=== PATIENT | female | born 1985 | race Caucasian/White ===

== ENCOUNTER 2022-11-16 18:04 | Emergency (ER) | payer OTHER ==
--- OUTSIDE RECORDS SUMMARY | 2022-11-16 19:29 | XMS REPORT | Continuity of Care Document ---
:1985 Author Organization [facility] t Address [address] [facility] [facility] [place] [address] Care Team Providers Name Role Phone Pcp, Patient Does Not Have A Primary Care Physician [phone] OWEN GAN Attending Clinician Unavailable Micah HUGGINS- Owen KNOX Attending Clinician Doctor Unassigned, [place] Attending Clinician Unavailable Team, [facility] Attending Clinician UnavailJeimy Rosenberg Attending Clinician Unavailable ELDER GONZALEZ Attending Clinician Unavailable Elder Keane Attending Clinician [facility] Attending Clinician MARGARET CROOKS Attending Clinician Unavailable JEIMY KENNEY Attending Clinician Unavailable Pob, [facility] Attending Clinician Unavailable Carmen Franco DO Attending Clinician Chay Mejia MD Attending Clinician CHAY MEJIA Attending Clinician Unavailable Pcp-Lab Attending Clinician Unavailable [facility] Admitting Clinician Payers Payer Name Policy Type Policy Number Effective Date Expiration Date S ource Problems Condition Condition Condition Status Onset Resolution Last Treating Co mments Source Name Details Category Date Date Treatment Clinician Date Status Status Disease Active Overview: Univer s following following 02-20 Formattin i ty of gastric gastric 00:00: g of this [place] bypass for bypass for 00 note Me dical weight weight might be Branch loss loss different from the original. Done 08/2018 [id number], [id number], Diagnosis Active 2018-09-19 Me leda MORBID MORBID 2-20 22:18:00 l OBESITY OBESITY 00:00: Jar[place] Active 00 08/15/2018 [facility] MORBID MORBID Diagnosis Active 2018-08-16 M emoria OBESITY OBESITY 1-04 09:25:00 l Active 00:00: Jarrett 06/29/2018 00 [facility] [id number], [id number], Diagnosis Active 2017-062018-05-11 Me moria REFLUX REFLUX 0-04 13:55:00 l Active 00:00: Jarrett 03/29/2018 00 [facility] Insulin Insulin Disease Active Univers pump pump 3 ity of status status 00:00: [place] 00 Medical Branch Insulin Insulin Disease Active Univers pump pump 307 [place] Uncontroll Uncontroll Disease Active U caryers ed type 1 ed type 1 3-07 ity of diabetes diabetes 00:00: [place] mellitus mellitus 00 Medica l without without Branch complicati complicati on on No No Disease Active Univers diabetic diabetic 02-18 [place] of retinopath [place] OU y OU 00 Medical [place] Refractive Refractive Disease Active U nelson error error 8 ity of 00:00: [place] 00 Medical Branch Dry eye Dry eye Disease Active Univers syndrome syndrome 8 ity of 00:00: [place] 00 Medical Branch Duodenitis Problem 2018-10-31 M emoria without Duodenitis 11:53:10 l bleeding without [place] bleeding 10/31/2018 [facility] Unspecifie Unspecifi Problem 2018-10-31 Memoria d chronic ed chronic 11:53:10 l gastritis gastritis Herm essence without without bleeding bleeding 10/31/2018 [facility] Presence Presence Problem 2018-10-31 Memoria of of 11:53:10 l (intrauter (intrauter He rmann ine) ine) contracept contracept choco device choco device 9 [facility] Type 2 Type 2 Problem 2018-10-31 Benjamín darin diabetes diabetes 11:53:10 l mellitus mellitus Moses n without without complicati complicati ons ons 10/31/2018 [facility] 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9, adult adult 10/31/2018 [facility] Allergy Allergy Problem 2018-10-31 Me moria status to status to 11:53:10 l other other [place] antibiotic antibiotic agents agents status status 10/31/2018 [facility] Allergy Allergy Problem 2018-10-31 Me moria status to status to 11:53:10 l analgesic analgesic Herm essence agent agent status status 10/31/2018 [facility] Morbid Morbid Problem 2018-12-17 Benjamín darin (severe) (severe) 11:12:16 l obesity obesity [place] due to due to excess excess calories calories 12/17/2018 [facility] Diabetes Diabetes Problem Active 2021-05-27 Memoria mellitus mellitus 01:59:48 l (disorder) (disorder) He rmann Active Problem 05/27/2021 [facility] Gastroesop Gastroeso Problem Active 2021-05-27 Memoria hageal phageal 01:59:48 l reflux reflux [place] disease disease (disorder) (disorder) Active Problem 05/27/2021 [facility] Morbid Morbid Problem Active 2021-05-27 Benjamín darin obesity obesity 01:59:48 l (disorder) (disorder) He rmann Active Problem 05/27/2021 [facility] Type 1 Type 1 Problem Active 2018-11-26 Benjamín darin diabetes diabetes 02:47:04 l mellitus mellitus Moses n without without complicati complicati on on Active Problem 11/26/2018 [facility] Preoperati Preoperat Diagnosis Active 2018-11-26 Memoria ve choco 02:47:04 l clearance clearance Herm essence Active Diagnosis 11/26/2018 [facility] MORBID MORBID Diagnosis Active 2018-09-19 Me moria (SEVERE) (SEVERE) 22:18:00 l OBESITY OBESITY [place] DUE TO DUE TO EXCESS CA EXCESS CA Active [facility] History of Past Illness Condition Condition Condition Status Onset Resolution Last Treating Co mments Source Name Details Category Date Date Treatment Clinician Date Gastro-eso Problem 2017-062018-10-31 2018-10-31 Memoria phageal Gastro-eso 0-25 11:53:10 11:53:10 l reflux phageal 04:30: Jar[place] disease reflux 18 without disease esophagiti without s esophagiti s 04/19/2018 10/31/2018 [facility] Allergies, Adverse Reactions, Alerts Allergy Allergy Status Severity Reaction(s) Onset Inactive Treating Comm ents Source Name Type Date Date Clinician Ibuprofe Propensi Active Hives Univer s n ty to 8-26 ity of adverse 00:00: [place] reaction 00 Medical s to Branch drug IBUPROFE DRUG Active Hives Univers N INGREDI 8-26 ity of 00:00: [place] 00 Medical Branch SULFAMET DRUG Active Hives Univers HOXAZOLE 4-30 ity of -TRIMETH 00:00: [place] OPRIM 00 Medical Branch Sulfamet Propensi Active Swelling Univ ers hoxazole ty to 4-30 ity of -Trimeth adverse 00:00: [place] oprim reaction 00 Medical s Branch Bactrim Bactrim Active Carl Farias Advil Advil Active Carl Farias Social History Social Habit Start Date Stop Date Quantity Comments Source Exposure to 2022-10-03 2022-10-13 Not sure University of SARS-CoV-2 00:00:00 11:47:00 [facility] [place] [facility] (event) Branch Alcohol intake 2022-10-13 2022-10-13 Current drinker Unive rsity of 00:00:00 00:00:00 of alcohol [facility] [place] [facility] (finding) Branch Tobacco use and 2021-04-29 2021-04-29 Smokeless tobacco Un iversity of exposure 00:00:00 00:00:00 non-user [facility] Social History 2018-09-07 2018-09-07 [facility] Ileana wong 15:21:50 15:21:50 Sex [birth year] Universit y of 00:00:00 00:00:00 [facility] Smoking Status Start Date Stop Date Source Never smoked tobacco [facility] Medications Ordered Filled Start Stop Current Ordering Indication Dosage Frequency Signature Comments Components Source Medication Medication Date Date Medication? Clinician (SIG) Name Name SEMGLEE PEN Yes inject 22 U nivers U-100 4-26 Units ity of INSULIN 100 00:00: [place] unit/mL (3 00 skin at Medica l mL) bedtime. Branch injection SEMGLEE PEN Yes inject 22 U nivers U-100 4-26 Units ity of INSULIN 100 00:00: [place] unit/mL (3 00 skin at Medica l mL) bedtime. Branch injection SEMGLEE PEN Yes inject 22 U nivers U-100 4-26 Units ity of INSULIN 100 00:00: [place] unit/mL (3 00 skin at Medica l mL) bedtime. Branch injection SEMGLEE PEN Yes inject 22 U nivers U-100 4-26 Units ity of INSULIN 100 00:00: [place] unit/mL (3 00 skin at Medica l mL) bedtime. Branch injection SEMGLEE PEN Yes inject 22 U nivers U-100 4-26 Units ity of INSULIN 100 00:00: [place] unit/mL (3 00 skin at Medica l mL) bedtime. Branch injection ergocalcife Yes Take by Uni vers rol, 4-20 mouth. ity of vitamin D2, 11:50: [place] (VITAMIN D 33 Medical ORAL) Branch multivit-ir Yes 1{tbl} Take 1 Un kwadwo on-FA-calci 4-20 tablet by ity of um-mins 9 11:50: [place] mg iron-400 33 the Medical mcg tablet morning. [facility] Bariatric Advantage calcium 2023-0 Yes Take by Univers carbonate 4-20 mouth. ity of (CALCIUM 11:50: [place] 500 ORAL) 33 Medical Branch ergocalcife 0 Yes Take by Uni vers rol, 4-20 mouth. ity of vitamin D2, 11:50: [place] (VITAMIN D 33 Medical ORAL) Branch multivit-ir Yes 1{tbl} Take 1 Un kwadwo on-FA-calci 4-20 tablet by ity of um-mins 9 11:50: [place] mg iron-400 33 the Medical mcg tablet morning. [facility] Bariatric Advantage calcium 0 Yes Take by Univers carbonate 4-20 mouth. ity of (CALCIUM 11:50: [place] 500 ORAL) 33 Medical Branch ergocalcife 0 Yes Take by Uni vers rol, 4-20 mouth. ity of vitamin D2, 11:50: [place] (VITAMIN D 33 Medical ORAL) Branch multivit-ir Yes 1{tbl} Take 1 Un kwadwo on-FA-calci 4-20 tablet by ity of um-mins 9 11:50: [place] mg iron-400 33 the Medical mcg tablet morning. [facility] Bariatric Advantage calcium Yes Take by Univers carbonate 4-20 mouth. ity of (CALCIUM 11:50: [place] 500 ORAL) 33 Medical Branch ergocalcife 0 Yes Take by Uni vers rol, 4-20 mouth. ity of vitamin D2, 11:50: [place] (VITAMIN D 33 Medical ORAL) Branch multivit-ir Yes 1{tbl} Take 1 Un kwadwo on-FA-calci 4-20 tablet by ity of um-mins 9 11:50: [place] mg iron-400 33 the Medical mcg tablet morning. [facility] Bariatric Advantage calcium 0 Yes Take by Univers carbonate 4-20 mouth. ity of (CALCIUM 11:50: [place] 500 ORAL) 33 Medical Branch ergocalcife 0 Yes Take by Uni vers rol, 4-20 mouth. ity of vitamin D2, 11:50: [place] (VITAMIN D 33 Medical ORAL) Branch multivit-ir 0 Yes 1{tbl} Take 1 Un kwadwo on-FA-calci 4-20 tablet by ity of um-mins 9 11:50: [place] mg iron-400 33 the Medical mcg tablet morning. [facility] Bariatric Advantage calcium 0 Yes Take by Univers carbonate 4-20 mouth. ity of (CALCIUM 11:50: [place] 500 ORAL) 33 Medical Branch ergocalcife 0 Yes Take by Uni vers rol, 4-20 mouth. ity of vitamin D2, 11:50: [place] (VITAMIN D 33 Medical ORAL) Branch multivit-ir Yes 1{tbl} Take 1 Un kwadwo on-FA-calci 4-20 tablet by ity of um-mins 9 11:50: [place] mg iron-400 33 the Medical mcg tablet morning. [facility] Bariatric Advantage calcium 0 Yes Take by Univers carbonate 4-20 mouth. ity of (CALCIUM 11:50: [place] 500 ORAL) 33 Medical Branch ergocalcife 0 Yes Take by Uni vers rol, 4-20 mouth. ity of vitamin D2, 11:50: [place] (VITAMIN D 33 Medical ORAL) Branch multivit-ir 0 Yes 1{tbl} Take 1 Un kwadwo on-FA-calci 4-20 tablet by ity of um-mins 9 11:50: [place] mg iron-400 33 the Medical mcg tablet morning. [facility] Bariatric Advantage calcium Yes Take by Univers carbonate 4-20 mouth. ity of (CALCIUM 11:50: [place] 500 ORAL) 33 Medical Branch ergocalcife 0 Yes Take by Uni vers rol, 4-20 mouth. ity of vitamin D2, 11:50: [place] (VITAMIN D 33 Medical ORAL) Branch multivit-ir 0 Yes 1{tbl} Take 1 Un kwadwo on-FA-calci 4-20 tablet by ity of um-mins 9 11:50: [place] mg iron-400 33 the Medical mcg tablet morning. [facility] Bariatric Advantage calcium 0 Yes Take by Univers carbonate 4-20 mouth. ity of (CALCIUM 11:50: [place] 500 ORAL) 33 Medical Branch ergocalcife 0 Yes Take by Uni vers rol, 4-20 mouth. ity of vitamin D2, 11:50: [place] (VITAMIN D 33 Medical ORAL) Branch multivit-ir 2023-0 Yes 1{tbl} Take 1 Un kwadwo on-FA-calci 4-20 tablet by ity of um-mins 9 11:50: [place] mg iron-400 33 the Medical mcg tablet morning. [facility] Bariatric Advantage calcium Yes Take by Univers carbonate 4-20 mouth. ity of (CALCIUM 11:50: [place] 500 ORAL) 33 Medical Branch ergocalcife Yes Take by Uni vers rol, 4-20 mouth. ity of vitamin D2, 11:50: [place] (VITAMIN D 33 Medical ORAL) Branch multivit-ir Yes 1{tbl} Take 1 Un kwadwo on-FA-calci 4-20 tablet by ity of um-mins 9 11:50: [place] mg iron-400 33 the Medical mcg tablet morning. [facility] Bariatric Advantage calcium Yes Take by Univers carbonate 4-20 mouth. ity of (CALCIUM 11:50: [place] 500 ORAL) 33 Medical Branch ergocalcife Yes Take by Uni vers rol, 4-20 mouth. ity of vitamin D2, 11:50: [place] (VITAMIN D 33 Medical ORAL) Branch multivit-ir Yes 1{tbl} Take 1 Un kwadwo on-FA-calci 4-20 tablet by ity of um-mins 9 11:50: [place] mg iron-400 33 the Medical mcg tablet morning. [facility] Bariatric Advantage calcium Yes Take by Univers carbonate 4-20 mouth. ity of (CALCIUM 11:50: [place] 500 ORAL) 33 Medical Branch ergocalcife Yes Take by Uni vers rol, 4-20 mouth. ity of vitamin D2, 11:50: [place] (VITAMIN D 33 Medical ORAL) Branch multivit-ir Yes 1{tbl} Take 1 Un kwadwo on-FA-calci 4-20 tablet by ity of um-mins 9 11:50: [place] mg iron-400 33 the Medical mcg tablet morning. [facility] Bariatric Advantage calcium Yes Take by Univers carbonate 4-20 mouth. ity of (CALCIUM 11:50: [place] 500 ORAL) 33 Medical Branch insulin 0 Yes [id number] 1{each} inject 1 Univers pump 4-20 Each under ity of cart,automa 00:00: [place] eunice,BT 00 every 72 Medical (OMNIPOD 5 (seventy-t Bra formerly [facility] G6 PODS, wo) hours. GEN 5,) E10.9 Crtg insulin 2022-0 Yes [id number] 30U inject 0.3 Univers glargine-yf 4-20 mL under ity of gn 00:00: the skin [place] (SEMGLEE,IN 00 at [facility] SULIN bedtime. Branch GLARG-YFGN, Inject 20 PEN) 100 units unit/mL (3 under the mL) InPn skin daily if not using insulin pump. insulin 2022- Yes [id number] 15U inject 15 Univers lispro 4-20 Units ity of (HUMALOG 00:00: [place] KWIKPEN 00 skin in Medical INSULIN) the Branch 100 unit/mL morning pen and 15 injector Units at noon and 15 Units in the evening. inject before meals. Blood-Gluco 2022-0 Yes [id number] 1{each} inject 1 Univers se Sensor 4-20 Each under ity of (DEXCOM G6 00:00: the skin Germán as SENSOR) 00 every 10 Medical Veda (ten) Branch days. E10.9 , insulin 4times daily Blood-Gluco 2022-0 Yes [id number] E10.9 , Univers se 4-20 insulin ity of Transmitter 00:00: 4times [place] (DEXCOM G6 00 daily Medical TRANSMITTER Branch ) Veda Insulin 2022-0 Yes [id number] E10.9 , Un kwadwo [place], 4-20 insulin ity of Disposable, 00:00: 4times [place] (BD INSULIN 00 daily Medical PEN NEEDLE Branch UF) 31 gauge x 5/16" Ndle insulin 2022-0 Yes [id number] 1{each} inject 1 Univers pump 4-20 Each under ity of cart,auto,B 00:00: the skin [place] T-[facility]tr 00 CONTINUOUS Medical (OMNIPOD 5 . E10.9 Branch G6 INTRO KIT, GEN 5,) Crtg insulin 2022-0 Yes [id number] 1{each} inject 1 Univers pump 4-20 Each under ity of cart,automa 00:00: the skin [place] eunice,BT 00 every 72 Medical (OMNIPOD 5 (seventy-t Bra formerly [facility] G6 PODS, wo) hours. GEN 5,) E10.9 Crtg insulin 2022-0 Yes [id number] 30U inject 0.3 Univers glargine-yf 4-20 mL under ity of gn 00:00: the skin [place] (SEMGLEE,IN 00 at Medical SULIN bedtime. Branch GLARG-YFGN, Inject 20 PEN) 100 units unit/mL (3 under the mL) InPn skin daily if not using insulin pump. insulin 0 Yes [id number] 15U inject 15 Univers lispro 4-20 Units ity of (HUMALOG 00:00: [place] KWIKPEN 00 skin in Medical INSULIN) the Branch 100 unit/mL morning pen and 15 injector Units at noon and 15 Units in the evening. inject before meals. Blood-Gluco 0 Yes [id number] 1{each} inject 1 Univers se Sensor 4-20 Each under ity of (DEXCOM G6 00:00: the skin [place]án as SENSOR) 00 every 10 Medical Veda (ten) Branch days. E10.9 , insulin 4times daily Blood-Gluco 2022-0 Yes [id number] E10.9 , Univers se 4-20 insulin ity of Transmitter 00:00: 4times [place] (DEXCOM G6 00 daily Medical TRANSMITTER Branch ) Veda Insulin 2022-0 Yes [id number] E10.9 , Un kwadwo [place], 4-20 insulin ity of Disposable, 00:00: 4times [place] (BD INSULIN 00 daily Medical PEN NEEDLE Branch UF) 31 gauge x 5/16" Ndle insulin 2022-0 Yes [id number] 1{each} inject 1 Univers pump 4-20 Each under ity of cart,auto,B 00:00: the skin [place] T-cntr 00 CONTINUOUS Medical (OMNIPOD 5 . E10.9 Branch G6 INTRO KIT, GEN 5,) Crtg insulin 2022-0 Yes [id number] 1{each} inject 1 Univers pump 4-20 Each under ity of cart,automa 00:00: the skin [place] eunice,BT 00 every 72 Medical (OMNIPOD 5 (seventy-t Bra formerly [facility] G6 PODS, wo) hours. GEN 5,) E10.9 Crtg insulin 2022-0 Yes [id number] 30U inject 0.3 Univers glargine-yf 4-20 mL under ity of gn 00:00: the skin [place] (SEMGLEE,IN 00 at Medical SULIN bedtime. Branch GLARG-YFGN, Inject 20 PEN) 100 units unit/mL (3 under the mL) InPn skin daily if not using insulin pump. insulin 2022-0 Yes [id number] 15U inject 15 Univers lispro 4-20 Units ity of (HUMALOG 00:00: [place] KWIKPEN 00 skin in Medical INSULIN) the Branch 100 unit/mL morning pen and 15 injector Units at noon and 15 Units in the evening. inject before meals. Blood-Gluco 2022-0 Yes [id number] 1{each} inject 1 Univers se Sensor 4-20 Each under ity of (DEXCOM G6 00:00: the skin [place] as SENSOR) 00 every 10 Medical [place] (ten) Branch days. E10.9 , insulin 4times daily Blood-Gluco 2022-0 Yes [id number] E10.9 , Univers se 4-20 insulin ity of Transmitter 00:00: 4times [place] (DEXCOM G6 00 daily Medical TRANSMITTER Branch ) Veda Insulin 2022-0 Yes [id number] E10.9 , Un kwadwo [place], 4-20 insulin ity of Disposable, 00:00: 4times [place] (BD INSULIN 00 daily Medical PEN NEEDLE Branch UF) 31 gauge x 5/16" Ndle insulin 2022-0 Yes [id number] 1{each} inject 1 Univers pump 4-20 Each under ity of cart,auto,B 00:00: the skin [place] [facility] 00 CONTINUOUS Medical (OMNIPOD 5 . E10.9 Branch G6 INTRO KIT, GEN 5,) Crtg insulin 2022-0 Yes [id number] 1{each} inject 1 Univers pump 4-20 Each under ity of cart,automa 00:00: the skin [place] eunice,BT 00 every 72 Medical (OMNIPOD 5 (seventy-t Bra formerly [facility] G6 PODS, wo) hours. GEN 5,) E10.9 Crtg insulin 2022-0 Yes [id number] 30U inject 0.3 Univers glargine-yf 4-20 mL under ity of gn 00:00: the skin [place] [facility] GLARG-[facility]FGN, Inject 20 PEN) 100 units unit/mL (3 under the mL) InPn skin daily if not using insulin pump. insulin Yes [id number] 15U inject 15 Univers lispro 4-20 Units ity of (HUMALOG 00:00: [place] KWIKPEN 00 skin in Medical INSULIN) the Branch 100 unit/mL morning pen and 15 injector Units at noon and 15 Units in the evening. inject before meals. Blood-Gluco Yes [id number] 1{each} inject 1 Univers se Sensor 4-20 Each under ity of (DEXCOM G6 00:00: the skin [place] as SENSOR) 00 every 10 Medical Veda (ten) Branch days. E10.9 , insulin 4times daily Blood-Gluco Yes [id number] E10.9 , Univers se 4-20 insulin ity of Transmitter 00:00: 4times [place] (DEXCOM G6 00 daily Medical TRANSMITTER Branch ) Veda Insulin Yes [id number] E10.9 , Un kwadwo [place], 4-20 insulin ity of Disposable, 00:00: 4times [place] (BD INSULIN 00 daily Medical PEN NEEDLE Branch UF) 31 gauge x 5/16" Ndle insulin 2022- Yes [id number] 1{each} inject 1 Univers pump 4-20 Each under ity of cart,auto,B 00:00: the skin [place] [facility] 00 CONTINUOUS Medical (OMNIPOD 5 . E10.9 Branch G6 INTRO KIT, GEN 5,) Crtg insulin Yes [id number] 1{each} inject 1 Univers pump 4-20 Each under ity of cart,automa 00:00: the skin [place] eunice,BT 00 every 72 Medical (OMNIPOD 5 (seventy-t Bra formerly [facility] G6 PODS, wo) hours. GEN 5,) E10.9 Crtg insulin 2022- Yes [id number] 15U inject 15 Univers lispro 4-20 Units ity of (HUMALOG 00:00: [place] KWIKPEN 00 skin in Medical INSULIN) the Branch 100 unit/mL morning pen and 15 injector Units at noon and 15 Units in the evening. inject before meals. Blood-Gluco 2023-0 Yes [id number] 1{each} inject 1 Univers se Sensor 4-20 Each under ity of (DEXCOM G6 00:00: the skin [place] as SENSOR) 00 every 10 Medical Veda (ten) Branch days. E10.9 , insulin 4times daily Blood-Gluco 0 Yes [id number] E10.9 , Univers se 4-20 insulin ity of Transmitter 00:00: 4times [place] (DEXCOM G6 00 daily Medical TRANSMITTER Branch ) Veda Insulin 2022-0 Yes [id number] E10.9 , Un kwadwo [place], 4-20 insulin ity of Disposable, 00:00: 4times [place] (BD INSULIN 00 daily Medical PEN NEEDLE Branch UF) 31 gauge x 5/16" Ndle insulin Yes [id number] 1{each} inject 1 Univers pump 4-20 Each under ity of cart,auto,B 00:00: the skin [place] [facility] 00 CONTINUOUS Medical (OMNIPOD 5 . E10.9 Branch G6 INTRO KIT, GEN 5,) Crtg Insulin Yes [id number] 22U inject 22 Univers Glargine 4-20 Units ity of (BASAGLAR 00:00: under the [place] as KWIKPEN 00 skin at Medical U-100 bedtime. Branch INSULIN) 100 unit/mL (3 mL) injection insulin 2022- Yes [id number] 1{each} inject 1 Univers pump 4-20 Each under ity of cart,automa 00:00: the skin [place] eunice,BT 00 every 72 Medical (OMNIPOD 5 (seventy-t Bra formerly [facility] G6 PODS, wo) hours. GEN 5,) E10.9 Crtg insulin Yes [id number] 15U inject 15 Univers lispro 4-20 Units ity of (HUMALOG 00:00: [place] KW[place]EN 00 skin in Medical INSULIN) the Branch 100 unit/mL morning pen and 15 injector Units at noon and 15 Units in the evening. inject before meals. Blood-Gluco 0 Yes [id number] 1{each} inject 1 Univers se Sensor 4-20 Each under ity of (DEXCOM G6 00:00: the skin [place] as SENSOR) 00 every 10 Medical Veda (ten) Branch days. E10.9 , insulin 4times daily Blood-Gluco 202-0 Yes [id number] E10.9 , Univers se 4-20 insulin ity of Transmitter 00:00: 4times [place] (DEXCOM G6 00 daily Medical TRANSMITTER Branch ) Veda Insulin 2022-0 Yes [id number] E10.9 , Un kwadwo [place], 4-20 insulin ity of Disposable, 00:00: 4times [place] (BD INSULIN 00 daily Medical PEN NEEDLE Branch UF) 31 gauge x 5/16" Ndle insulin 2022-0 Yes [id number] 1{each} inject 1 Univers pump 4-20 Each under ity of cart,auto,B 00:00: the skin [place] [facility] 00 CONTINUOUS Medical (OMNIPOD 5 . E10.9 Branch G6 INTRO KIT, GEN 5,) Crtg Insulin 2022-0 Yes [id number] 22U inject 22 Univers Glargine 4-20 Units ity of (BASAGLAR 00:00: under the [place] as KWIKPEN 00 skin at Medical U-100 bedtime. Branch INSULIN) 100 unit/mL (3 mL) injection insulin 2022-0 Yes [id number] 1{each} inject 1 Univers pump 4-20 Each under ity of cart,automa 00:00: the [place] eunice,BT 00 every 72 Medical (OMNIPOD 5 (seventy-t Bra formerly [facility] G6 PODS, wo) hours. GEN 5,) E10.9 Crtg insulin 2022-0 Yes [id number] 15U inject 15 Univers lispro 4-20 Units ity of (HUMALOG 00:00: [place] KWIKPEN 00 skin in Medical INSULIN) the Branch 100 unit/mL morning pen and 15 injector Units at noon and 15 Units in the evening. inject before meals. Blood-Gluco 2022-0 Yes [id number] 1{each} inject 1 Univers se Sensor 4-20 Each under ity of (DEXCOM G6 00:00: the skin [place] as SENSOR) 00 every 10 Medical Veda (ten) Branch days. E10.9 , insulin 4times daily Blood-Gluco 202-0 Yes [id number] E10.9 , Univers se 4-20 insulin ity of Transmitter 00:00: 4times [place] (DEXCOM G6 00 daily Medical TRANSMITTER Branch ) [facility]eda Insulin 2023-0 Yes [id number] E10.9 , Un [place], 4-20 insulin ity of Disposable, [place] INS[place]IN 00 daily Medical PEN NEEDLE Branch UF) 31 gauge x 5/16" Ndle insulin 2022- Yes [id number] 1{each} inject 1 [facility] pump 4-20 Each under ity of cart,auto,B 00:00: the skin [place] [facility] 00 CONTINUOUS Medical (OMNIPOD 5 . E10.9 Branch G6 INTRO KIT, GEN 5,) Crtg Insulin Yes [id number] 22U inject 22 [facility] Glargine 4-20 Units ity of (BASAGLAR 00:00: under the [place] KWIKPEN 00 skin at Medical U-100 bedtime. Branch INSULIN) 100 unit/mL (3 mL) injection insulin Yes [id number] 1{each} inject 1 [facility] pump 4-20 Each under ity of cart,automa 00:00: [place] skin [place] e[place],BT 00 every 72 Medical (OMNIPOD 5 (seventy-t Bra formerly [facility] G6 PODS, wo) hours. GEN 5,) E10.9 Crtg insulin Yes [id number] 15U inject 15 [facility] lispro 4-20 Units ity of (HUMALOG 00:00: [place] skin in Medical INSULIN) the Branch 100 unit/mL morning pen and 15 injector Units at noon and 15 Units in the evening. inject before meals. Blood-Gluco Yes [id number] 1{each} inject 1 [facility] se Sensor 4-20 Each under ity of (DEXCOM G6 00:00: the skin [place] SENSOR) 00 every 10 Medical [facility]eda (ten) Branch days. E10.9 , insulin 4times daily Blood-Gluco 2022-0 Yes [id number] E10.9 , Univers se 4-20 insulin [place]y of Transmitter 00:00: [place] (DEXCOM G6 00 daily Medical TRANSMITTER Branch ) [facility]eda Insulin 2022-0 Yes [id number] E10.9 , [place], 4-20 insulin ity of Disposable, 00:00: [place] ([place] INSULIN 00 daily Medical PEN NEEDLE Branch UF) 31 gauge x 5/16" Ndle insulin 2022-0 Yes [id number] 1{each} inject 1 [facility] pump 4-20 Each under ity of cart,auto,B 00:00: [place] [facility] 00 CONTINUOUS Medical (OMNIPOD 5 . E10.9 Branch G6 INTRO KIT, GEN 5,) Crtg insulin 2022-0 Yes [id number] 1{each} inject 1 [facility] pump 4-20 Each under ity of cart,automa 00:00: [place] skin [place],BT 00 every 72 Medical (OMNIPOD 5 (seventy-t Bra formerly [facility] G6 PODS, wo) hours. GEN 5,) E10.9 Crtg insulin 2022-0 Yes [id number] 15U inject 15 [facility] lispro 4-20 Units ity of (HUMALOG 00:00: [place] skin in Medical INSULIN) the Branch 100 unit/mL morning pen and 15 injector Units at noon and 15 Units in the evening. inject before meals. Blood-Gluco 2022-0 Yes [id number] 1{each} inject 1 [facility] se Sensor 4-20 Each under ity of (DEXCOM G6 00:00: the skin [place] SENSOR) 00 every 10 Medical Veda (ten) Branch days. E10.9 , insulin 4times daily Blood-Gluco 2022-0 Yes [id number] E10.9 , Univers se 4-20 insulin ity of Transmitter 00:00: [place] (DEXCOM G6 00 daily Medical TRANSMITTER Branch ) [facility]eda Insulin 2022-0 Yes [id number] E10.9 , [place], 4-20 insulin ity of Disposable, 00:00: [place] ([place] INSULIN 00 daily Medical PEN NEEDLE Branch UF) 31 gauge x 5/16" Ndle insulin 2022-0 Yes [id number] 1{each} inject 1 [facility] pump 4-20 Each under ity of cart,auto,B 00:00: the skin [place] [facility] 00 CONTINUOUS Medical (OMNIPOD 5 . E10.9 Branch G6 INTRO KIT, GEN 5,) Crtg insulin 2022-0 Yes [id number] 1{each} inject 1 [facility] pump 4-20 Each under ity of cart,automa 00:00: [place] skin [place],BT 00 every 72 Medical (OMNIPOD 5 (seventy-t Bra formerly [facility] G6 PODS, wo) hours. GEN 5,) E10.9 Crtg insulin 2022-0 Yes [id number] 15U inject 15 [facility] lispro 4-20 Units ity of (HUMALOG 00:00: [place] skin in Medical INSULIN) the Branch 100 unit/mL morning pen and 15 injector Units at noon and 15 Units in the evening. inject before meals. Blood-Gluco 2022-0 Yes [id number] 1{each} inject 1 [facility] se Sensor 4-20 Each under ity of (DEXCOM G6 00:00: the skin [place] SENSOR) 00 every 10 Medical [facility]eda (ten) Branch days. E10.9 , insulin 4times daily Blood-Gluco 2022-0 Yes [id number] E10.9 , Univers se 4-20 insulin ity of Transmitter 00:00: [place] (DEXCOM G6 00 daily Medical TRANSMITTER Branch ) [facility]eda Insulin 2022-0 Yes [id number] E10.9 , [place], 4-20 insulin ity of Disposable, 00:00: [place] (BD INSULIN 00 daily Medical PEN NEEDLE Branch UF) 31 gauge x 5/16" Ndle insulin 2022- Yes [id number] 1{each} inject 1 [facility] pump 4-20 Each under ity of cart,auto,B 00:00: the skin [place] [facility] 00 CONTINUOUS Medical (OMNIPOD 5 . E10.9 Branch G6 INTRO KIT, GEN 5,) Crtg insulin 2022-0 Yes [id number] 1{each} inject 1 [facility] pump 4-20 Each under ity of cart,automa 00:00: the skin [place],BT 00 every 72 Medical (OMNIPOD 5 (seventy-t Bra formerly [facility] G6 PODS, wo) hours. GEN 5,) E10.9 Crtg insulin 2022-0 Yes [id number] 15U inject 15 [facility] lispro 4-20 Units ity of (HUMALOG 00:00: [place] skin in Medical INSULIN) the Branch 100 unit/mL morning pen and 15 injector Units at noon and 15 Units in the evening. inject before meals. Blood-Gluco 2022-0 Yes [id number] 1{each} inject 1 [facility] se Sensor 4-20 Each under ity of (DEXCOM G6 00:00: the skin [place] SENSOR) 00 every 10 Medical [facility] (ten) Branch days. E10.9 , insulin 4times daily Blood-Gluco 2022-0 Yes [id number] E10.9 , Univers se 4-20 insulin ity of Transmitter 00:00: [place] (DEXCOM G6 00 daily Medical TRANSMITTER Branch ) [facility] Insulin 2022-0 Yes [id number] E10.9 , [place], 4-20 insulin ity of Disposable, 00:00: [place] (BD INSULIN 00 daily Medical PEN NEEDLE Branch UF) 31 gauge x 5/16" Ndle insulin 2022-0 Yes [id number] 1{each} inject 1 [facility] pump 4-20 Each under ity of cart,auto,B 00:00: the skin [place] [facility] 00 CONTINUOUS Medical (OMNIPOD 5 . E10.9 Branch G6 INTRO KIT, GEN 5,) Crtg insulin 2022-0 Yes [id number] 1{each} inject 1 [facility] pump 4-20 Each under ity of cart,automa 00:00: the skin [place],BT 00 every 72 Medical (OMNIPOD 5 (seventy-t Bra formerly [facility] G6 PODS, wo) hours. GEN 5,) E10.9 Crtg insulin 2022-0 Yes [id number] 15U inject 15 [facility] lispro 4-20 Units ity of (HUMALOG 00:00: [place] skin in Medical INSULIN) the Branch 100 unit/mL morning pen and 15 injector Units at noon and 15 Units in the evening. inject before meals. Blood-Gluco 2022-0 Yes [id number] 1{each} inject 1 [facility] se Sensor 4-20 Each under ity of (DEXCOM G6 00:00: the skin [place] SENSOR) 00 every 10 Medical [facility] (ten) Branch days. E10.9 , insulin 4times daily Blood-Gluco 2022-0 Yes [id number] E10.9 , Univers se 4-20 insulin ity of Transmitter 00:00: [place] (DEXCOM G6 00 daily Medical TRANSMITTER Branch ) [facility]eda Insulin 2022-0 Yes [id number] E10.9 , [place], 4-20 insulin ity of Disposable, 00:00: [place] (BD INSULIN 00 daily Medical PEN NEEDLE Branch UF) 31 gauge x 5/16" Ndle insulin Yes [id number] 1{each} inject 1 [facility] pump 4-20 Each under ity of cart,auto,B 00:00: the skin [place] [facility] 00 CONTINUOUS Medical (OMNIPOD 5 . E10.9 Branch G6 INTRO KIT, GEN 5,) Crtg Insulin 2022- No [id number] 22U inject 22 [facility] Glargine 4-20 04-26 Units ity of (BASAGLAR 00:00: [place] 00 :00 skin at [facility] U-100 bedtime. Branch INSULIN) 100 unit/mL (3 mL) injection insulin 2022- No [id number] 30U inject 0.3 Univers glargine-yf 4-20 04-20 mL under ity of gn 00:00: 00:00 the skin [place] (SEMGLEE,IN 00 :00 at [facility] SULIN bedtime. Branch GLARG-YFGN, Inject 20 PEN) 100 units unit/mL (3 under the mL) InPn skin daily if not using insulin pump. insulin Yes [id number] Inject 20 [facility] glargine-yf 6-03 units ity of gn 00:00: under the [place] (SEMGLEE,IN 00 skin daily Me dical SULIN if not Branch GLARG-YFGN, using PEN) 100 insulin unit/mL (3 pump. mL) InPn insulin Yes [id number] 1{each} 1 Each by [facility] pump 6-03 NOT ity of cart,cont 00:00: APPLICABLE [place] inf,RF 00 route Medical (OMNIPOD every 72 Branch CLASSIC (seventy-t POD, GEN wo) hours. 3,) Crtg CHANGE POD EVERY 3 DAYS insulin Yes [id number] Inject 20 [facility] glargine-yf 6-03 units ity of gn 00:00: under the [place] (SEMGLEE,IN 00 skin daily Me dical SULIN if not Branch GLARG-YFGN, using PEN) 100 insulin unit/mL (3 pump. mL) InPn insulin Yes [id number] 1{each} 1 Each by [facility] pump 6-03 NOT ity of cart,cont 00:00: APPLICABLE [place] inf,RF 00 route Medical (OMNIPOD every 72 Branch CLASSIC (seventy-t POD, GEN wo) hours. 3,) Crtg CHANGE POD EVERY 3 DAYS insulin 0 Yes [id number] Inject 20 [facility] glargine-yf 6-03 units ity of gn 00:00: under the [place] (SEMGLEE,IN 00 skin daily Me dical SULIN if not Branch GLARG-YFGN, using PEN) 100 insulin unit/mL (3 pump. mL) InPn insulin 0 Yes [id number] 1{each} 1 Each by [facility] pump 6-03 NOT ity of cart,cont 00:00: APPLICABLE [place] inf,RF 00 route Medical (OMNIPOD every 72 Branch CLASSIC (seventy-t POD, GEN wo) hours. 3,) Crtg CHANGE POD EVERY 3 DAYS insulin 0 Yes [id number] 1{each} 1 Each by [facility] pump 6-03 NOT ity of cart,cont 00:00: APPLICABLE [place] inf,RF 00 route Medical (OMNIPOD every 72 Branch CLASSIC (seventy-t POD, GEN wo) hours. 3,) Crtg CHANGE POD EVERY 3 DAYS insulin 0 Yes [id number] 1{each} 1 Each by [facility] pump 6-03 NOT ity of cart,cont 00:00: APPLICABLE [place] inf,RF 00 route Medical (OMNIPOD every 72 Branch CLASSIC (seventy-t POD, GEN wo) hours. 3,) Crtg CHANGE POD EVERY 3 DAYS insulin 0 Yes [id number] 1{each} 1 Each by [facility] pump 6-03 NOT ity of cart,cont 00:00: APPLICABLE [place] inf,RF 00 route Medical (OMNIPOD every 72 Branch CLASSIC (seventy-t POD, GEN wo) hours. 3,) Crtg CHANGE POD EVERY 3 DAYS insulin 2021-0 Yes [id number] 1{each} 1 Each by [facility] pump 6-03 NOT ity of cart,cont 00:00: APPLICABLE [place] inf,RF 00 route Medical (OMNIPOD every 72 Branch CLASSIC (seventy-t POD, GEN wo) hours. 3,) Crtg CHANGE POD EVERY 3 DAYS insulin 0 Yes [id number] 1{each} 1 Each by [facility] pump 6-03 NOT ity of cart,cont 00:00: APPLICABLE [place] inf,RF 00 route Medical (OMNIPOD every 72 Branch CLASSIC (seventy-t POD, GEN wo) hours. 3,) Crtg CHANGE POD EVERY 3 DAYS insulin 2021-0 Yes [id number] 1{each} 1 Each by Univers pump 6-03 NOT ity of cart,cont 00:00: APPLICABLE [place] inf,RF 00 route Medical (OMNIPOD every 72 Branch CLASSIC (seventy-t POD, GEN wo) hours. 3,) Crtg CHANGE POD EVERY 3 DAYS insulin 2021-0 Yes [id number] 1{each} 1 Each by Univers pump 6-03 NOT ity of cart,cont 00:00: APPLICABLE [place] inf,RF 00 route Medical (OMNIPOD every 72 Branch CLASSIC (seventy-t POD, GEN wo) hours. 3,) Crtg CHANGE POD EVERY 3 DAYS insulin 0 Yes [id number] 1{each} 1 Each by Univers pump 6-03 NOT ity of cart,cont 00:00: APPLICABLE [place] inf,RF 00 route Medical (OMNIPOD every 72 Branch CLASSIC (seventy-t POD, GEN wo) hours. 3,) Crtg CHANGE POD EVERY 3 DAYS insulin 0 Yes [id number] 1{each} 1 Each by Univers pump 6-03 NOT ity of cart,cont 00:00: APPLICABLE [place] inf,RF 00 route Medical (OMNIPOD every 72 Branch CLASSIC (seventy-t POD, GEN wo) hours. 3,) Crtg CHANGE POD EVERY 3 DAYS insulin 2021-0 Yes [id number] 1{each} 1 Each by [facility] pump 6-03 NOT ity of cart,cont 00:00: APPLICABLE [place] inf,RF 00 route Medical (OMNIPOD every 72 Branch CLASSIC (seventy-t POD, GEN wo) hours. 3,) Crtg CHANGE POD EVERY 3 DAYS insulin 2021-0 Yes [id number] 1{each} 1 Each by Univers pump 6-03 NOT ity of cart,cont 00:00: APPLICABLE [place] inf,RF 00 route Medical (OMNIPOD every 72 Branch CLASSIC (seventy-t POD, GEN wo) hours. 3,) Crtg CHANGE POD EVERY 3 DAYS insulin 2021-0 Yes [id number] 1{each} 1 Each by Univers pump 6-03 NOT ity of cart,cont 00:00: APPLICABLE [place] inf,RF 00 route Medical (OMNIPOD every 72 Branch CLASSIC (seventy-t POD, GEN wo) hours. 3,) Crtg CHANGE POD EVERY 3 DAYS insulin 2022- No [id number] Inject 20 Univers glargine-yf 6-03 04-20 units ity of gn 00:00: 00:00 under the [place] (SEMGLEE,IN 00 :00 skin daily Me dical SULIN if not Branch GLARG-YFGN, using PEN) 100 insulin unit/mL (3 pump. mL) InPn insulin 2022- No [id number] Inject 20 Univers glargine-yf 6- 04-20 units ity of gn 00:00: 00:00 under the [place] (SEMGLEE,IN 00 :00 skin daily Me dical SULIN if not Branch GLARG-YFGN, using PEN) 100 insulin unit/mL (3 pump. mL) InPn insulin 2022- No [id number] Inject 20 Univers glargine-yf 6- 04-20 units ity of gn 00:00: 00:00 under the [place] (SEMGLEE,IN 00 :00 skin daily Me dical SULIN if not Branch GLARG-YFGN, using PEN) 100 insulin unit/mL (3 pump. mL) InPn insulin 2022- No [id number] Inject 20 Univers glargine-yf 6-03 04-20 units ity of gn 00:00: 00:00 under the [place] (SEMGLEE,IN 00 :00 skin daily Me dical SULIN if not Branch GLARG-YFGN, using PEN) 100 insulin unit/mL (3 pump. mL) InPn insulin 2021- No [id number] Inject 20 Univers glargine-yf 3-10 06-03 units ity of gn 00:00: 00:00 under the [place] (SEMGLEE,IN 00 :00 skin daily Me dical SULIN if not Branch GLARG-YFGN, using PEN) 100 insulin unit/mL (3 pump. mL) InPn Insulin 2021- No [id number] CHANGE POD Univers Pump 3-10 06-03 EVERY 3 ity of Cartridge 00:00: 00:00 DAYS [place] (OMNIPOD 00 :00 Medical INSULIN Branch REFILL) Crtg ergocalcife 2020-06 Yes Take by Uni vers rol, 1-04 mouth. ity of vitamin D2, 16:43: [place] (VITAMIN D 14 Medical ORAL) Branch ergocalcife 2020-06 Yes Take by Uni vers rol, 1-04 mouth. ity of vitamin D2, 16:43: [place] (VITAMIN D 14 Medical ORAL) Branch ergocalcife 2020-06 Yes Take by Uni vers rol, 1-04 mouth. ity of vitamin D2, 16:43: [place] (VITAMIN D 14 Medical ORAL) Branch insulin 2020-06 Yes [id number] 6U inject 6 U nivers lispro 1-04 Units ity of (HUMALOG 00:00: [place] 00 skin 3 Medical INSULIN) (three) Branch 100 unit/mL times pen daily injector before meals. insulin 2020-06 Yes [id number] 6U inject 6 U nivers lispro 1-04 Units ity of (HUMALOG 00:00: [place] 00 skin 3 Medical INSULIN) (three) Branch 100 unit/mL times pen daily injector before meals. insulin 2020-06 Yes [id number] 6U inject 6 U nivers lispro 1-04 Units ity of (HUMALOG 00:00: under [place] 00 skin 3 Medical INSULIN) (three) Branch 100 unit/mL times pen daily injector before meals. insulin 2020-06- No [id number] 6U inject 6 Univers lispro 1-04 04-20 Units ity of (HUMALOG 00:00: 00:00 under the [place]WIKPEN 00 :00 skin 3 Medical INSULIN) (three) Branch 100 unit/mL times pen daily injector before meals. insulin 2020-06- No [id number] 6U inject 6 Univers lispro 1-04 04-20 Units ity of (HUMALOG 00:00: 00:00 under the [place]WIKPEN 00 :00 skin 3 Medical INSULIN) (three) Branch 100 unit/mL times pen daily injector before meals. insulin 2020-06- No [id number] 6U inject 6 Univers lispro 1-04 04-20 Units ity of (HUMALOG 00:00: 00:00 under the [place]EN 00 :00 skin 3 Medical INSULIN) (three) Branch 100 unit/mL times pen daily injector before meals. insulin 2020-06- No [id number] 6U inject 6 Univers lispro 1-04 04-20 Units ity of (HUMALOG 00:00: 00:00 under the [place]WIK[place]EN 00 :00 skin 3 Medical INSULIN) (three) Branch 100 unit/mL times pen daily injector before meals. Blood-Gluco 2020-06 Yes [id number] Use as Univers se 0-21 directed ity of Meter,Suri 00:00: [place] nuous 00 Medical (DEXCOM G6 Branch JIG MAKER) Mis Blood-Gluco 2020-06 Yes [id number] 1{each} inject 1 Univers se Sensor 0-21 Each under ity of (DEXCOM G6 00:00: the skin [place] SENSOR) 00 every 10 Medical Veda (ten) Branch days. Use as directed Blood-Gluco 2020-06 Yes [id number] Use as Univers se 0-21 directed ity of Transmitter 00:00: [place] (DEXCOM G6 00 Medical TRANSMITTER Branch ) Veda insulin 2020-06 Yes [id number] USE Uni vers lispro, 0-21 INSTRUCTED ity of human, 00:00: WITH [place] (HUMALOG 00 INSULIN Medical U-100 PUMP UNTIL Branch INSULIN) A MAXIMUM 100 unit/mL OF 80 injection UNITS DAILY. blood sugar 2020-06 Yes [id number] Check Univers diagnostic 0-21 blood ity of (ONETOUCH 00:00: sugar 4 [place] ULTRA TEST) 00 times a Medic al strip day Branch Blood-Gluco 2020-06 Yes [id number] Use as Univers se 0-21 directed ity of Meter,Suri 00:00: [place] nuous 00 Medical (DEXCOM G6 Branch JIG MAKER) Misc Blood-Gluco 2020-06 Yes [id number] 1{each} inject 1 Univers se Sensor 0-21 Each under ity of (DEXCOM G6 00:00: the skin [place] SENSOR) 00 every 10 Medical Veda (ten) Branch days. Use as directed Blood-Gluco 2020-06 Yes [id number] Use as Univers se 0-21 directed ity of Transmitter 00:00: [place] (DEXCOM G6 00 Medical TRANSMITTER Branch ) Veda insulin 2020-06 Yes [id number] USE Uni vers lispro, 0-21 INSTRUCTED ity of human, 00:00: WITH [place] (HUMALOG 00 INSULIN Medical U-100 PUMP UNTIL Branch INSULIN) A MAXIMUM 100 unit/mL OF 80 injection UNITS DAILY. blood sugar 2020-06 Yes [id number] Check Univers diagnostic 0-21 blood ity of (ONETOUCH 00:00: sugar 4 [place] ULTRA TEST) 00 times a Medic al strip day Branch Blood-Gluco 2020-06 Yes [id number] Use as Univers se 0-21 directed ity of Meter,Suri 00:00: [place] nuous 00 Medical (DEXCOM G6 Branch JIG MAKER) Misc Blood-Gluco 2020-06 Yes [id number] 1{each} inject 1 Univers se Sensor 0-21 Each under ity of (DEXCOM G6 00:00: the skin [place] SENSOR) 00 every 10 Medical Veda (ten) Branch days. Use as directed Blood-Gluco 2020-06 Yes [id number] Use as Univers se 0-21 directed ity of Transmitter 00:00: [place] (DEXCOM G6 00 Medical TRANSMITTER Branch ) Veda insulin 2020-06 Yes [id number] USE Uni vers lispro, 0-21 INSTRUCTED ity of human, 00:00: WITH [place] (HUMALOG 00 INSULIN Medical U-100 PUMP UNTIL Branch INSULIN) A MAXIMUM 100 unit/mL OF 80 injection UNITS DAILY. blood sugar 2020-06 Yes [id number] Check Univers diagnostic 0-21 blood ity of (ONETOUCH 00:00: sugar 4 [place] ULTRA TEST) 00 times a Medic al strip day Branch Blood-Gluco 2020-06 Yes [id number] Use as Univers se 0-21 directed ity of Meter,Suri 00:00: [place] nuous 00 Medical (DEXCOM G6 Branch JIG MAKER) Misc insulin 2020-06 Yes [id number] USE Uni vers lispro, 0-21 INSTRUCTED ity of human, 00:00: WITH [place] (HUMALOG 00 INSULIN Medical U-100 PUMP UNTIL Branch INSULIN) A MAXIMUM 100 unit/mL OF 80 injection UNITS DAILY. blood sugar 2020-06 Yes [id number] Check Univers diagnostic 0-21 blood ity of (ONETOUCH 00:00: sugar 4 [place] ULTRA TEST) 00 times a Medic al strip day Branch Blood-Gluco 2020-06 Yes [id number] Use as Univers se 0-21 directed ity of Meter,Suri 00:00: [place] nuous 00 Medical (DEXCOM G6 Branch JIG MAKER) Misc insulin 2020-06 Yes [id number] USE Uni vers lispro, 0-21 INSTRUCTED ity of human, 00:00: WITH [place] (HUMALOG 00 INSULIN Medical U-100 PUMP UNTIL Branch INSULIN) A MAXIMUM 100 unit/mL OF 80 injection UNITS DAILY. blood sugar 2020-06 Yes [id number] Check Univers diagnostic 0-21 blood ity of (ONETOUCH 00:00: sugar 4 [place] ULTRA TEST) 00 times a Medic al strip day Branch Blood-Gluco 2020-06 Yes [id number] Use as Univers se 0-21 directed ity of Meter,Suri 00:00: [place] nuous 00 Medical (DEXCOM G6 Branch JIG MAKER) Misc insulin 2020-06 Yes [id number] USE Uni vers lispro, 0-21 INSTRUCTED ity of human, 00:00: WITH [place] (HUMALOG 00 INSULIN Medical U-100 PUMP UNTIL Branch INSULIN) A MAXIMUM 100 unit/mL OF 80 injection UNITS DAILY. blood sugar 2020-06 Yes [id number] Check Univers diagnostic 0-21 blood ity of (ONETOUCH 00:00: sugar 4 [place] ULTRA TEST) 00 times a Medic al strip day Branch Blood-Gluco 2020-06 Yes [id number] Use as Univers se 0-21 directed ity of Meter,Suri 00:00: [place] nuous 00 Medical (DEXCOM G6 Branch JIG MAKER) Misc insulin 2020-06 Yes [id number] USE Uni vers lispro, 0-21 INSTRUCTED ity of human, 00:00: WITH [place] (HUMALOG 00 INSULIN Medical U-100 PUMP UNTIL Branch INSULIN) A MAXIMUM 100 unit/mL OF 80 injection UNITS DAILY. blood sugar 2020-06 Yes [id number] Check Univers diagnostic 0-21 blood ity of (ONETOUCH 00:00: sugar 4 [place] ULTRA TEST) 00 times a Medic al strip day Branch Blood-Gluco 2020-06 Yes [id number] Use as Univers se 0-21 directed ity of Meter,Suri 00:00: [place] nuous 00 Medical (DEXCOM G6 Branch JIG MAKER) Misc insulin 2020-06 Yes [id number] USE Uni vers lispro, 0-21 INSTRUCTED ity of human, 00:00: WITH [place] (HUMALOG 00 INSULIN Medical U-100 PUMP UNTIL Branch INSULIN) A MAXIMUM 100 unit/mL OF 80 injection UNITS DAILY. blood sugar 2020-06 Yes [id number] Check Univers diagnostic 0-21 blood ity of (ONETOUCH 00:00: sugar 4 [place] ULTRA TEST) 00 times a Medic al strip day Branch Blood-Gluco 2020-06 Yes [id number] Use as Univers se 0-21 directed ity of Meter,Suri 00:00: [place] nuous 00 Medical (DEXCOM G6 Branch JIG MAKER) Misc insulin 2020-06 Yes [id number] USE Uni vers lispro, 0-21 INSTRUCTED ity of human, 00:00: WITH [place] (HUMALOG 00 INSULIN Medical U-100 PUMP UNTIL Branch INSULIN) A MAXIMUM 100 unit/mL OF 80 injection UNITS DAILY. blood sugar 2020-06 Yes [id number] Check Univers diagnostic 0-21 blood ity of (ONETOUCH 00:00: sugar 4 [place] ULTRA TEST) 00 times a Medic al strip day Branch Blood-Gluco 2020-06 Yes [id number] Use as Univers se 0-21 directed ity of Meter,Suri 00:00: [place] nuous 00 Medical (DEXCOM G6 Branch JIG MAKER) [facility] insulin 2020-06 Yes [id number] USE Uni vers lispro, 0-21 INSTRUCTED ity of human, 00:00: WITH [place] (HUMALOG 00 INSULIN Medical U-100 PUMP UNTIL Branch INSULIN) A MAXIMUM 100 unit/mL OF 80 injection UNITS DAILY. blood sugar 2020-06 Yes [id number] Check Univers diagnostic 0-21 blood ity of (ONETOUCH 00:00: sugar 4 [place] ULTRA TEST) 00 times a Medic al strip day Branch Blood-Gluco 2020-06 Yes [id number] Use as Univers se 0-21 directed ity of Meter,Suri 00:00: [place] nuous 00 Medical (DEXCOM G6 Branch JIG MAKER) [facility] 2020-06 Yes [id number] USE Uni vers lispro, 0-21 INSTRUCTED ity of human, 00:00: WITH [place] (HUMALOG 00 INSULIN Medical U-100 PUMP UNTIL Branch INSULIN) A MAXIMUM 100 unit/mL OF 80 injection UNITS DAILY. blood sugar 2020-06 Yes [id number] Check Univers diagnostic 0-21 blood ity of (ONETOUCH 00:00: sugar 4 [place] ULTRA TEST) 00 times a Medic al strip day Branch Blood-Gluco 2020-06 Yes [id number] Use as Univers se 0-21 directed ity of Meter,Suri 00:00: [place] nuous 00 Medical (DEXCOM G6 Branch JIG MAKER) Misc insulin 2020-06 Yes [id number] USE Uni vers lispro, 0-21 INSTRUCTED ity of human, 00:00: WITH [place] (HUMALOG 00 INSULIN Medical U-100 PUMP UNTIL Branch INSULIN) A MAXIMUM 100 unit/mL OF 80 injection UNITS DAILY. blood sugar 2020-06 Yes [id number] Check Univers diagnostic 0-21 blood ity of (ONETOUCH 00:00: sugar 4 [place] ULTRA TEST) 00 times a Medic al strip day Branch Blood-Gluco 2020-06 Yes [id number] Use as Univers se 0-21 directed ity of Meter,Suri 00:00: [place] nuous 00 Medical (DEXCOM G6 Branch JIG MAKER) Misc insulin 2020-06 Yes [id number] USE Uni vers lispro, 0-21 INSTRUCTED ity of human, 00:00: WITH [place] (HUMALOG 00 INSULIN Medical U-100 PUMP UNTIL Branch INSULIN) A MAXIMUM 100 unit/mL OF 80 injection UNITS DAILY. blood sugar 2020-06 Yes [id number] Check Univers diagnostic 0-21 blood ity of (ONETOUCH 00:00: sugar 4 [place] ULTRA TEST) 00 times a Medic al strip day Branch Blood-Gluco 2020-06 Yes [id number] Use as Univers se 0-21 directed ity of Meter,Suri 00:00: [place] nuous 00 Medical (DEXCOM G6 Branch JIG MAKER) Misc insulin 2020-06 Yes [id number] USE Uni vers lispro, 0-21 INSTRUCTED ity of human, 00:00: WITH [place] (HUMALOG 00 INSULIN Medical U-100 PUMP UNTIL Branch INSULIN) A MAXIMUM 100 unit/mL OF 80 injection UNITS DAILY. blood sugar 2020-06 Yes [id number] Check Univers diagnostic 0-21 blood ity of (ONETOUCH 00:00: sugar 4 [place] ULTRA TEST) 00 times a Medic al strip day Branch Blood-Gluco 2020-06 Yes [id number] Use as Univers se 0-21 directed ity of Meter,Suri 00:00: [place] nuous 00 Medical (DEXCOM G6 Branch JIG MAKER) Misc insulin 2020-06 Yes [id number] USE Uni vers lispro, 0-21 INSTRUCTED ity of human, 00:00: WITH [place] (HUMALOG 00 INSULIN Medical U-100 PUMP UNTIL Branch INSULIN) A MAXIMUM 100 unit/mL OF 80 injection UNITS DAILY. blood sugar 2020-06 Yes [id number] Check Univers diagnostic 0-21 blood ity of (ONETOUCH 00:00: sugar 4 [place] ULTRA TEST) 00 times a Medic al Branch Blood-Gluco 2020-06- No [id number] 1{each} inject 1 Univers se Sensor 0-21 04-20 Each under ity of (DEXCOM G6 00:00: 00:00 [place] SENSOR) 00 :00 every 10 Medical [facility] (ten) Branch . Use as directed Blood-Gluco 2020-06- No [id number] Use as Univers se 0-21 04-20 directed ity of Transmitter 00:00: 00:00 [place] (DEXCOM G6 00 :00 Medical TRANSMITTER Branch ) Veda Blood-Gluco 2020-06- No [id number] 1{each} inject 1 Univers se Sensor 0-21 04-20 Each under ity of (DEXCOM G6 00:00[place] SENS[place] 00 :00 every 10 Medical Veda (ten) Branch . Use as directed Blood-Gluco 2020-06- No [id number] Use as Univers se 0-21 04-20 directed ity of Transmitter 00:00: 00:00 [place] (DEXCOM G6 00 :00 Medical TRANSMITTER Branch ) [facility]eda Blood-Gluco 2020-06- No [id number] 1{each} inject 1 Univers se Sensor 0-21 04-20 Each under ity of (DEXCOM G6 00:00[place] 00 :00 every 10 Medical Veda (ten) Branch days. Use as directed Blood-Gluco 2020-06- No [id number] Use as Univers se 0-21 04-20 directed ity of Transmitter 00:00: 00:00 [place] (DEXCOM G6 00 :00 Medical TRANSMITTER Branch ) Veda Blood-Gluco 2020-06- No [id number] 1{each} inject 1 Univers se Sensor 0-21 04-20 Each under ity of (DEXCOM G6 00:00[place] 00 :00 every 10 Medical Veda (ten) Branch days. Use as directed Blood-Gluco 2020-06- No [id number] Use as Univers se 0-21 04-20 directed ity of Transmitter 00:00: 00:00 [place] (DEXCOM G6 00 :00 Medical TRANSMITTER Branch ) Veda calcium Yes Take by Univers carbonate 8-28 mouth. ity of (CALCIUM 11:13: [place] 500 ORAL) Medical Branch calcium Yes Take by Univers carbonate 8-28 mouth. ity of (CALCIUM 11:13: [place] 500 ORAL) Medical Branch calcium Yes Take by Univers carbonate 8-28 mouth. ity of (CALCIUM 11:13: [place] 500 ORAL) Medical Branch multivit-ir Yes 1{tbl} Take 1 Un kwadwo on-FA-calci 8-28 tablet by ity of um-mins 9 11:12: mouth [place] mg iron-400 49 daily. Medica l mcg tablet Bariatric Bran ch Advantage multivit-ir Yes 1{tbl} Take 1 Un kwadwo on-FA-calci 8-28 tablet by ity of um-mins 9 11:12: mouth [place] mg iron-400 49 daily. Medica l mcg tablet Bariatric Bran ch Advantage multivit-ir Yes 1{tbl} Take 1 Un kwadwo on-FA-calci 8-28 tablet by ity of um-mins 9 11:12: mouth [place] mg iron-400 49 daily. Medica l mcg tablet Bariatric Bran ch Advantage Insulin Yes [id number] Use as Uni vers Syringe-Nee 8-28 directed ity of dle U-100 00:00: with [place] 0.3 mL 30 00 insulin if Medi vaibhav gauge x pump Branch 11/08" Syrg malfunctio ns Blood-Gluco Yes [id number] Use as Univers se Sensor 8-28 directed ity of (DEXCOM G6 00:00: change [place] SENSOR) 00 every 10 Medical Veda days Branch Insulin Yes [id number] Use as Uni vers Syringe-Nee 8-28 directed ity of dle U-100 00:00: with [place] 0.3 mL 30 00 insulin if Medi vaibhav gauge x pump Branch 5/16" Syrg malfunctio ns Blood-Gluco 2019-0 Yes [id number] Use as Univers se Sensor 8-28 directed ity of (DEXCOM G6 00:00: change [place] SENSOR) 00 every 10 Medical Veda days Branch Insulin 2019-0 Yes [id number] Use as Uni vers Syringe-Nee 8-28 directed ity of dle U-100 00:00: with [place] 0.3 mL 30 00 insulin if Medi vaibhav gauge x pump Branch 5/16" Syrg malfunctio ns Blood-Gluco 2019-0 Yes [id number] Use as Univers se Sensor 8-28 directed ity of (DEXCOM G6 00:00: change [place] SENSOR) 00 every 10 Medical Veda days Branch Insulin 2019-0 Yes [id number] Use as Uni vers Syringe-Nee 8-28 directed ity of dle U-100 00:00: with [place] 0.3 mL 30 00 insulin if Medi vaibhav gauge x pump Branch 5/16" Syrg malfunctio ns Blood-Gluco 2019-0 Yes [id number] Use as Univers se Sensor 8-28 directed ity of (DEXCOM G6 00:00: change [place] SENSOR) 00 every 10 Medical Veda days Branch Insulin 2019-0 Yes [id number] Use as Uni vers Syringe-Nee 8-28 directed ity of dle U-100 00:00: with [place] 0.3 mL 30 00 insulin if Medi vaibhav gauge x pump Branch 5/16" Syrg malfunctio ns Blood-Gluco 2019-0 Yes [id number] Use as Univers se Sensor 8-28 directed ity of (DEXCOM G6 00:00: change [place] SENSOR) 00 every 10 Medical Veda days Branch Insulin 2019-0 Yes [id number] Use as Uni vers Syringe-Nee 8-28 directed ity of dle U-100 00:00: with [place] 0.3 mL 30 00 insulin if Medi vaibhav gauge x pump Branch 5/16" Syrg malfunctio ns Blood-Gluco 2019-0 Yes [id number] Use as Univers se Sensor 8-28 directed ity of (DEXCOM G6 00:00: change [place] SENSOR) 00 every 10 Medical Veda days Branch Insulin 2019-0 Yes [id number] Use as Uni vers Syringe-Nee 8-28 directed ity of dle U-100 00:00: with [place] 0.3 mL 30 00 insulin if Medi vaibhav gauge x pump Branch 5/16" Syrg malfunctio ns Blood-Gluco 2019-0 Yes [id number] Use as Univers se Sensor 8-28 directed ity of (DEXCOM G6 00:00: change [place] SENSOR) 00 every 10 Medical Veda days Branch Insulin 2019-0 Yes [id number] Use as Uni vers Syringe-Nee 8-28 directed ity of dle U-100 00:00: with [place] 0.3 mL 30 00 insulin if Medi vaibhav gauge x pump Branch 5/16" Syrg malfunctio ns Blood-Gluco 2019- Yes [id number] Use as Univers se Sensor 8-28 directed ity of (DEXCOM G6 00:00: change [place] SENSOR) 00 every 10 Medical Veda days Branch Insulin 2019 Yes [id number] Use as Uni vers Syringe-Nee 8-28 directed ity of dle U-100 00:00: with [place] 0.3 mL 30 00 insulin if Medi vaibhav gauge x pump Branch 5/16" Syrg malfunctio ns Blood-Gluco 2019-0 Yes [id number] Use as Univers se Sensor 8-28 directed ity of (DEXCOM G6 00:00: change [place] SENSOR) 00 every 10 Medical Veda days Branch Insulin 2019-0 Yes [id number] Use as Uni vers Syringe-Nee 8-28 directed ity of dle U-100 00:00: with [place] 0.3 mL 30 00 insulin if Medi vaibhav gauge x pump Branch 5/16" Syrg malfunctio ns Blood-Gluco 2019-0 Yes [id number] Use as Univers se Sensor 8-28 directed ity of (DEXCOM G6 00:00: change [place] SENSOR) 00 every 10 Medical Veda days Branch Insulin 2019-0 Yes [id number] Use as Uni vers Syringe-Nee 8-28 directed ity of dle U-100 00:00: with [place] 0.3 mL 30 00 insulin if Medi vaibhav gauge x pump Branch 5/16" Syrg malfunctio ns Blood-Gluco 2019- Yes [id number] Use as Univers se Sensor 8-28 directed ity of (DEXCOM G6 00:00: change [place] SENSOR) 00 every 10 Medical Veda days Branch Insulin 2019-0 Yes [id number] Use as Uni vers Syringe-Nee 8-28 directed ity of dle U-100 00:00: with [place] 0.3 mL 30 00 insulin if Medi vaibhav gauge x pump Branch 5/16" Syrg malfunctio ns Blood-Gluco 2019- Yes [id number] Use as Univers se Sensor 8-28 directed ity of (DEXCOM G6 00:00: change [place] SENSOR) 00 every 10 Medical Veda days Branch Insulin 2019-0 Yes [id number] Use as Uni vers Syringe-Nee 8-28 directed ity of dle U-100 00:00: with [place] 0.3 mL 30 00 insulin if Medi vaibhav gauge x pump Branch 5/16" Syrg malfunctio ns Blood-Gluco 2019- Yes [id number] Use as Univers se Sensor 8-28 directed ity of (DEXCOM G6 00:00: change [place] SENSOR) 00 every 10 Medical Veda days Branch Insulin 2019-0 Yes [id number] Use as Uni vers Syringe-Nee 8-28 directed ity of dle U-100 00:00: with [place] 0.3 mL 30 00 insulin if Medi vaibhav gauge x pump Branch 5/16" Syrg malfunctio ns Blood-Gluco 2019- Yes [id number] Use as Univers se Sensor 8-28 directed ity of (DEXCOM G6 00:00: change [place] SENSOR) 00 every 10 Medical Veda days Branch Insulin 2019- Yes [id number] Use as Uni vers Syringe-Nee 8-28 directed ity of dle U-100 00:00: with [place] 0.3 mL 30 00 insulin if Medi vaibhav gauge x pump Branch 5/16" Syrg malfunctio ns Blood-Gluco 2019- Yes [id number] Use as Univers se Sensor 8-28 directed ity of (DEXCOM G6 00:00: change [place] SENSOR) 00 every 10 Medical Veda days Branch Humalog 2019-0 Yes JENS pump Memoria 6-03 JENIFER l 02:47: [place] 04 omeprazole 2019-0 Yes 40 mg = 1 Me moria 40 mg oral 3-21 cap, PO, l delayed 18:09: Daily, # Moses n release 00 90 cap, 0 capsule Refill(s) tramadol Yes 50 mg = 1 Benjamín darin hydrochlori 3-21 tab, PO, l de 50 MG 18:09: Q4H, PRN Delma nn Oral Tablet 00 Pain Score 1-3, X 3 day, # 20 tab, 0 Refill(s) sucralfate 2018- Yes 1 gm = 1 Mem oria 1 g oral 3-21 tab, PO, l tablet 18:09: QID, # 56 Moses n 00 tab, 0 Refill(s) Protonix 2018- No Notes: For Mem oria 3-21 IV push l 14:00: reconstitu [place] 00 te with 10 ml 0.9% sodium chloride and push over 2 minutes. (Same as: Protonix) Lovenox No Notes: Memoria 3-21 (Same as: l 04:00: Lovenox) [place] 00 Carafate 2018- No Notes: May Mem oria 3-20 interfere l 22:00: w/enteral [place] 00 feeds - Take 1 hr before or 2 hr after antacids, dairy pdt, meals & minerals - On empty stomach. For patients unable to swallow tablet, dissolve in 10mL - 30mL of water or juice and stir before giving. (Same As: Carafate) Ketorolac No 4 days Memor ia 3-20 l 21:00: MEDICATION [place] 00 WASTE Product Size: 30 mg Product Wasted: ___ mg Ofirmev No Notes: Memoria 3-20 Infuse l 20:00: over 15 [place] 00 minutes Do not exceed 4gm/day of acetaminop hen MEDICATION WASTE Product Size: 1000 mg Product Wasted: ___ mg Insulin 2018- Yes See Memoria Lispro 100 3-20 Instructio l UNT/ML 19:44: ns, [place] Injectable 00 patient Solution uses [Humalog] humalog 100 units/ml via insulin pump. basal rate is 1 unit per hour. carb ratio is 1 unit per 15 grams of carbs. Regular 2019- No 3 unit, Memoria Insulin, 3-20 Route: IV, l Human 100 15:53: ONCE, [place] UNT/ML 00 Dosing Injectable Weight Solution 102.727, [Humulin R] kg, Start date: 09/12/18 10:53:00 CDT, Stop date: 09/12/18 10:53:00 CDT sugammadex No Route: IV, M emoria (ANES) 3-20 Drug form: l 15:40: SOLN, [place] 00 ONCE, Stop date: 09/12/18 10:40:00 CDT ketOROLAC 2018- No IV, ONCE Benjamín darin (ANES) 3-20 l 15:40: [place] 00 ondansetron No Route: IV, Memoria (ANES) 3-20 Drug form: l 15:40: INJ, ONCE, Stop date: 09/12/18 10:40:00 CDT Dilaudid No Notes: Memoria 3-20 Same as l 15:39: Dilaudid tramadol No Notes: Not Mem oria hydrochlori 3-20 to exceed l de 50 MG 15:39: 400mg/day. Her looney Oral Tablet 00 (Same As: Ultram) Hydralazine No Notes: Benjamín darin 3-20 (Same as: l 15:39: Apresoline ) Push over 5 minutes Labetalol No Notes: Memori a 3-20 (Same as: l 15:39: Normodyne, Trandate) Push over 2 minutes Give bolus over 2-3 minutes. Ondansetron No Notes: Benjamín darin 3-20 (Same as: l 15:39: Zofran) MEDICATION WASTE Product Size: 4 mg Product Wasted: ___ mg Promethazin No 12.5 mg, Me moria e 3-20 50 mL, l 15:39: Route: IVPB, Drug form: SOLN, Q6H, Dosing Weight 102.727, kg, PRN Nausea & Vomiting, Start date: 09/12/18 10:39:00 CDT, Duration: 30 day, Stop date: 10/12/18 10:38:00 CDT Calcium No 1,000 mL, Memor ia Chloride 3-20 Rate: 125 l 0.0014 15:39: ml/hr, [place] MEQ/ML / 00 Infuse Potassium over: 8 Chloride hr, Route: 0.004 IV, Dosing MEQ/ML / Weight Sodium 102.727 Chloride kg, Total 0.103 Volume: MEQ/ML / 1,000, Sodium Start Lactate date: 0.028 09/12/18 MEQ/ML 10:39:00 Injectable CDT, Solution Duration: 30 day, Stop date: 10/12/18 10:38:00 CDT, 2.2, m2 morphine 2019-0 No Route: IV, Mem oria Sulfate 3-20 Drug form: l (ANES) 15:24: INJ, ONCE, Delma nn Stop date: 09/12/18 10:24:00 CDT ePHEDrine 2019-0 No Route: IV, Me moria (ANES) 3-20 Drug form: l 14:13: INJ, ONCE, [place] 00 Stop date: 09/12/18 9:13:00 CDT famotidine 2019-0 No Route: IV, M emoria (ANES) 3-20 Drug form: l 14:03: INJ, ONCE, Stop date: 09/12/18 9:03:00 CDT dexamethaso 2019-0 No Route: IV, Memoria ne (ANES) 3-20 Drug form: l 14:03: INJ, ONCE, Stop date: 09/12/18 9:03:00 CDT midazolam 2019-0 No Route: IV, Me moria (ANES) 3-20 Drug form: l 14:03: SOLN, [place] 00 ONCE, Stop date: 09/12/18 9:03:00 CDT fentaNYL 2019-0 No Route: IV, Mem oria (ANES) 3-20 Drug form: l 14:03: INJ, ONCE, [place] 00 Stop date: 09/12/18 9:03:00 CDT lidocaine 2019-0 No Route: IV, Me moria (ANES) 3-20 Drug form: l 14:03: INJ, ONCE, [place] 00 Stop date: 09/12/18 9:03:00 CDT propofol 2019-0 No Route: IV, Mem oria (ANES) 3-20 Drug form: l 14:03: INJ, ONCE, [place] 00 Stop date: 09/12/18 9:03:00 CDT rocuronium 2019-0 No Route: IV, M emoria (ANES) 3-20 Drug form: l 14:03: INJ, ONCE, Stop date: 09/12/18 9:03:00 CDT diphenhydrA 2019-0 No Route: IV, Memoria MINE (ANES) 3-20 Drug form: l 13:58: INJ, ONCE, Stop date: 09/12/18 8:58:00 CDT ceFAZolin 2018-0 No Route: IV, Me moria (ANES) 3-20 Drug form: l 13:53: INJ, ONCE, Stop date: 09/12/18 8:53:00 CDT Morphine 2019-0 No 2 mg, Memoria 3-20 Route: l 13:41: IVP, [place] 00 Q15Min, Dosing Weight 102.727, kg, PRN Pain Score 4-6, Start date: 09/12/18 8:41:00 CDT, Duration: 5 doses or times, Stop date: Limited # of times Naloxone 2019-0 No 0.4 mg, Memori a - Route: l 13:41: IVP, Q2MIN, Dosing Weight 102.727, kg, PRN Narcotic Reversal, Start date: 09/12/18 8:41:00 CDT, Duration: 8 doses or times, Stop date: Limited # of times Flumazenil 2019-0 No 0.2 mg, Benjamín darin -20 Route: l 13:41: IVP, PRN, Dosing Weight 102.727, kg, PRN Benzodiaze pine Reversal, Initial dose, Start date: 09/12/18 8:41:00 CDT, Duration: 30 day, Stop date: 10/12/18 8:40:00 CDT Ondansetron 2019-0 No 4 mg, Memor ia 3-20 Route: l 13:41: IVP, ONCE, Dosing Weight 102.727, kg, PRN Nausea & Vomiting, Start date: 09/12/18 8:41:00 CDT acetaminoph 2018-0 No Route: IV, Memoria en (ANES) 3-20 Drug form: l 10 mg 13:29: INJ, Start Moses n 00 date: 09/12/18 8:29:00 CDT, Stop date: 09/12/18 9:29:00 CDT Sodium 2018-0 No Route: IV, Memor ia Chloride 3-20 Total l 0.9% IV 12:40: Volume: [place] (ANES) 1000 00 1,000, mL Start date: 09/12/18 7:40:00 CDT, Stop date: 09/12/18 8:40:00 CDT ceFAZolin + 2019-0 No Notes: Benjamín darin sterile 3-20 (Same As: l water 20 mL 03:00: Ancef, Herm esesnce 00 Kefzol) MEDICATION WASTE Product Size: 1000 mg Product Wasted: ___ mg Humalog 2017-06 No SUB-Q, 0 Memori a 0-18 Refill(s) l 21:32: [place] 00 Insulin 2012-06 Yes [id number] Univer s [place], 2-02 ity of Disposable, 00:00: [place] (BD INSULIN 00 Medical PEN NEEDLE Branch UF) 31 X 5/16 " Ndle Insulin 2012-06 Yes [id number] Univer s [place], 2-02 ity of Disposable, 00:00: [place] (BD INSULIN 00 Medical PEN NEEDLE Branch UF) 31 X 5/16 " Ndle Insulin 2012-06 Yes [id number] Univer s [place], 2-02 ity of Disposable, 00:00: [place] (BD INSULIN 00 Medical PEN NEEDLE Branch UF) 31 X 5/16 " Ndle Insulin 2012-06- No [id number] Unive rs [place], 2-07 30-20 ity of Disposable, 00:00: 00:00 [place] (BD INSULIN 00 :00 Medical PEN NEEDLE Branch UF) 31 X 5/16 " Ndle Insulin 2012-06- No [id number] Unive rs [place], 2- 04-20 ity of Disposable, 00:00: 00:00 [place] (BD INSULIN 00 :00 Medical PEN NEEDLE Branch UF) 31 X 5/16 " Ndle Insulin 2012-06- No [id number] Unive rs [place], 2-07 30-20 ity of Disposable, 00:00: 00:00 [place] (BD INSULIN 00 :00 Medical PEN NEEDLE Branch UF) 31 X 5/16 " Ndle Insulin 2012-063- No [id number] Unive rs [place], 07-28 ity of Disposable, 00:00: 00:00 [place] (BD INSULIN 00 :00 Medical PEN NEEDLE Branch UF) 31 X 11/08 " Ndle Immunizations Ordered Immunization Filled Immunization Date Status Commen ts Source Name Name Influenza Fluzone 2018-08-06 Completed Memoria l Quadrivalent 00:00:00 [place] Vital Signs Vital Name Observation Time Observation Value Comments Source Systolic blood 2022-10-13 16:47:00 122 mm[Hg] Univer sity of pressure [facility] Diastolic blood 2022-10-13 16:47:00 76 mm[Hg] Unive rsity of pressure [facility] Heart rate 2022-10-13 16:47:00 78 /min [facility] Body temperature 2022-10-13 16:47:00 36.67 [facility]indu [facility] Res[facility] 2022-10-13 16:47:00 16 /min [facility] Body height 2022-10-13 16:47:00 165.1 cm [facility] Body weight 2022-10-13 16:47:00 63.458 kg [facility] BMI 2022-10-13 16:47:00 23.28 kg/m2 [facility] Oxygen saturation in 2022-10-13 16:47:00 100 /min [facility] Arterial blood by [facility] [place] [facility] Pulse oximetry Branch Height 2021-05-24 19:55:00 [facility] Weight 2021-05-24 19:55:00 [facility] [place] BMI Calculated 2021-05-24 19:55:00 Temi echeverria [place] Systolic (mm Hg) 2018-09-13 21:46:00 Benjamín jayesh [place] Diastolic (mm Hg) 2018-09-13 21:46:00 Mem orial [place] Respitory Rate 2018-09-13 21:46:00 Temi al [place] Heart Rate 2018-09-13 21:46:00 [facility] Temperature Oral (F) 2018-09-13 21:46:00 99.1 F [facility] [place] Systolic (mm Hg) 2018-09-13 16:46:00 Benjamín rial [place] Diastolic (mm Hg) 2018-09-13 16:46:00 Mem orial [place] Respitory Rate 2018-09-13 16:46:00 Memori al [place] Temperature Oral (F) 2018-09-13 16:46:00 98.6 F Memorial [place] Heart Rate 2018-09-13 16:46:00 [facility] [place] Systolic (mm Hg) 2018-09-13 12:21:00 Benjamín rial [place] Diastolic (mm Hg) 2018-09-13 12:21:00 Mem orial [place] Respitory Rate 2018-09-13 12:21:00 Memori al [place] Heart Rate 2018-09-13 12:21:00 [facility] [place] Temperature Oral (F) 2018-09-13 12:21:00 98.7 F [facility] [place] Height 2018-09-12 11:41:00 165.1 cm [facility] [place] BMI Calculated 2018-09-12 11:41:00 Memori al [place] Weight 2018-09-12 11:41:00 [facility] [place] Height 2018-09-07 13:56:00 162.56 cm [facility] [place] Weight 2018-09-07 13:56:00 [facility] [place] BMI Calculated 2018-09-07 13:56:00 Memori al [place] Temperature Oral (F) 2018-08-06 20:00:00 98.3 F Memorial [place] Weight 2018-08-06 20:00:00 [facility] [place] Height 2018-08-06 20:00:00 [facility] [place] Respitory Rate 2018-08-06 20:00:00 Memori al [place] Diastolic (mm Hg) 2018-08-06 20:00:00 Mem orial [place] Systolic (mm Hg) 2018-08-06 20:00:00 Benjamín rial [place] BMI Calculated 2018-07-13 16:16:00 Memori al [place] Weight 2018-07-13 16:16:00 [facility] [place] Height 2018-07-13 16:16:00 162.56 cm [facility] [place] Weight 2018-05-29 16:14:00 [facility] [place] BMI Calculated 2018-05-29 16:14:00 Memori al [place] Height 2018-05-29 16:14:00 165.1 cm [facility] [place] BMI Calculated 2018-04-12 21:31:00 Memori al [place] Weight 2018-04-12 21:31:00 [facility] [place] Height 2018-04-12 21:31:00 163.83 cm Sandro Farias Procedures Procedure Date / Time Performing Clinician Source Performed MEDICATION CORRESPONDENCE 2022-10-13 05:01:00 Doctor Unassigned, [facility] [place] [facility] Dental Sandro Farias operation<sup>1</sup> Caesarean section Sandro Nguyễn nn Upper GI endoscopy Sandro lowry Encounters Start End Encounter Admission Attending Care Care Encounter Source Date/Time Date/Time Type Type Clinicians Facility Department ID 2022-10-19 2022-10-19 Refill [facility] [place] [id number] Univers 00:00:00 00:00:00 Owen Raymond [facility] 350.1.13.10 i ty of SPECIAL[place].2.686 [place] - [id number] [address] 2022-10-19 2022-10-19 Telephone [facility] [place] [id number] Univers 00:00:00 00:00:00 Owen Raymond [facility] 350.1.13.10 i [id number] [place] - [id number] [address] 2022-10-18 2022-10-18 Telephone [facility] [place] [id number] Univers 00:00:00 00:00:00 Owen Raymond [facility] [id number] i [place] [id number] [place] - [id number] [address] 2022-10-13 2022-10-13 Office [facility] [place] [id number] Univers 11:30:00 12:00:00 Visit Owen Raymond [facility] 350.1.13.10 i [id number] [place] - [id number] [address] 2022-10-13 2022-10-13 Outpatient R [facility] [id number] Univers 11:30:00 11:30:00 OWEN angela [facility] 2022-10-13 2022-10-13 Orders Doctor GRAVES [id number] Univers 00:00:00 00:00:00 Only Unassigned, MELONIE 350.1.13.10 ity of [place] [facility] 4.2.7.2.686 Germán as [id number] [facility] 009 Branch 2022-10-13 2022-10-13 [facility] [id number] Univers 00:00:00 00:00:00 Owen [facility] 350.1.13.10 i ty of SPECIALTY 4.2.7.2.686 [facility] [id number] [facility] 220 Branch 2022-08-30 2022-08-30 Telephone Caesar [facility] STAR [id number] Univers 00:00:00 00:00:00 Health MELONIE 350.1.13.10 it y of Maintenance HOSPITAL 4.2.7.2.686 [place] [id number] [facility] 082 Branch 2022-03-07 2022-03-07 [facility] [id number] Univers 00:00:00 00:00:00 [facility] MULTISPEC 350.1.13.10 it[place] [id number] [address] DIABETES CLINIC 2021-11-26 2021-11-26 Telephone [facility] [id number] Univers 00:00:00 00:00:00 [facility] MULTISPEC 350.1.13.10 ity of IALTY 4.2.7.2.686 [facility] [id number] [address] DIABETES CLINIC 2021-10-26 2021-10-26 Outpatient R VIRGIE [facility] [id number] Univers 13:45:00 13:45:00 ELDER ity of [facility] 2021-09-06 2021-09-06 Orders Doctor STAR [id number] Univers 00:00:00 00:00:00 Only Unassigned, MELONIE 350.1.13.10 ity of [place] [facility] 4.2.7.2.686 Germán as [id number] [address] 2021-09-02 2021-09-02 [facility] [id number] Univers 00:00:00 00:00:00 Jeimy MULTISPEC 350.1.13.10 [place] [id number] [facility] AND [address] DIABETES CLINIC 2021-09-02 2021-09-02 Telephone [facility] [id number] Univers 00:00:00 00:00:00 Jeimy MULTISPEC 350.1.13.10 it[place] [id number] [facility] AND [address] DIABETES CLINIC 2021-09-01 2021-09-01 [facility] [id number] Univers 00:00:00 00:00:00 Elder MULTISPEC 350.1.13.10 ity of [place] [id number] [facility] AND [address] DIABETES CLINIC 2021-06-22 2021-06-22 Telephone [facility] [id number] Univers 00:00:00 00:00:00 Jeimy MULTISPEC 350.1.13.10 ity of [place] [id number] [facility] AND [address] DIABETES CLINIC 2021-06-22 2021-06-22 Orders Doctor STAR [id number] Univers 00:00:00 00:00:00 Only Unassigned, MELONIE 350.1.13.10 ity of [place] [facility] 4.2.7.2.686 Germán as [id number] [place] [address] Branch 2021-05-24 2021-05-25 Outpatient [facility]ox [place] [id number] Memcristina 20:00:00 05:59:59 r Physicians 01 l Bariatric Moses n Surgery 2021-05-24 2021-05-24 Outpatient Kike [facility] [id number] 14:00:00 23:59:59 Star Marietta Mcallister 2021-05-24 2021-05-24 Outpatient [facility] [id number] [facility] 14:00:00 14:00:00 01 selena Farias 2021-05-14 2021-05-14 Outpatient Ryan CROOKS [place] [facility] [id number] Univers 08:30:00 08:30:00 MARGARET ity of [facility] 2021-05-14 2021-05-14 Telephone Pablito [facility] [id number] Univers 00:00:00 00:00:00 Jeimy MULTISPEC 350.1.13.10 [place] [id number] [address] DIABETES CLINIC 2021-05-11 2021-05-11 [facility] [id number] [id number] [facility] 00:00:00 00:00:00 Jeimy MULTISPEC 350.1.13.10 [place] [id number] [address] [facility] 2021-05-10 2021-05-10 Orders Doctor STAR [id number] [facility] 00:00:00 00:00:00 Only Unassigned, MELONIE 350.1.13.10 ity of [facility] 4.2.7.2.686 Germán as [id number] [address] 2021-05-03 2021-05-03 Patient [facility] [id number] [facility] 00:00:00 00:00:00 Secure Msg [facility] MULTISPEC 350.1.13.10 [place] [phone] [address] [facility] 2021-04-29 2021-04-29 Outpatient R PABLITO [facility] [id number] [facility] 15:45:00 16:34:33 JIEMY ity of [facility] 2021-04-29 2021-04-29 [facility] [id number] [id number] [facility] 15:44:04 16:34:33 Visit Jeimy MULTISPEC 350.1.13.10 ity of IALTY [place] [id number] [address] [facility] 2021-04-29 2021-04-29 [facility] [id number] Univers 15:45:00 15:45:00 JEIMY ity [facility] 2021-04-29 2021-04-29 Orders Doctor GRAVES 1.2.840.114 [id number] Univers 00:00:00 00:00:00 Only Unassigned, MELONIE 350.1.13.10 ity of [place] [facility] 4.2.7.2.686 Germán as [id number] [address] 2021-04-28 2021-04-28 A&P Technician Damari, Adc Lab Main [facility] 1.2.8 40.114 [id number] Univers 11:28:45 11:43:45 Visit Jeimy Kenney ALLENHURST 350.1.13.10 [place] [id number] [address] 2021-04-28 2021-04-28 [facility] [id number] Univers 11:30:00 11:30:00 JEIMY ity [facility] 2021-04-15 2021-04-15 Outpatient [facility] [id number] Univers 14:15:00 15:23:39 JEIMY ity [facility] 2021-04-15 2021-04-15 [facility] 1.2.840.114 [id number] Univers 14:03:46 15:23:39 Visit Jeimy MULTISPEC 350.1.13.10 [place] [id number] [address] DI[facility]ETES CLINIC 2021-04-15 2021-04-15 Orders Doctor GRAVES 1.2.840.114 [id number] Univers 00:00:00 00:00:00 Only Unassigned, MELONIE 350.1.13.10 ity of [place] [facility] 4.2.7.2.686 Germán as [phone] [facility] [address] 2021-04-13 2021-04-13 [facility] 1.2.840.114 [id number] Univers 00:00:00 00:00:00 Carmen MULTISPEC 350.1.13.10 [place] [id number] [facility] [place] [address] DIABETES CLINIC 2021-04-09 2021-04-09 Telephone [facility] 1.2.454.156 [id number] Univers 00:00:00 00:00:00 Chay J PRIMARY 350.1.13.10 [place] [id number] Ny dicmt [address] 2021-03-28 2021-03-28 Refill [facility] 1.2.840.114 [id number] Univers 00:00:00 00:00:00 Chay J PRIMARY 350.1.13.10 [place] [id number] Ny dicmt [address] 2021-01-13 2021-01-[address] [facility] [id number] Univers 11:30:00 11:30:00 [facility] 2020-12-28 2020-12-28 Refill [facility] 1.2.840.114 [id number] Univers 00:00:00 00:00:00 Chay J PRIMARY 350.1.13.10 [place] [id number] Ny dicmt [address] 2020-09-16 2020-09-[address] [facility] [id number] Univers 10:30:00 10:30:00 [facility] [place] 2020-09-09 2020-09-09 Refill [facility] 1.2.840.114 [id number] Univers 00:00:00 00:00:00 Chay J PRIMARY 350.1.13.10 [place] [id number] Ny dicmt [address] [place] 2020-06-24 2020-06-24 Refill Doctor [facility] 1.2.840.114 [id number] Univers 00:00:00 00:00:00 Unassigned, PRIMARY 350.1.13.10 it[place] of [place] 4[place] [id number] [address] 2020-06-24 2020-06-24 Refill Doctor [facility] 1.2.840.114 [id number] Univers 00:00:00 00:00:00 Unassigned, PRIMARY 350.1.13.10 it[place] of [place] 4[place] [id number] [address] 2019-11-13 2019-11-[address] [facility] [id number] Univers 09:30:00 09:30:00 CHAY ity of [facility] 2019-11-13 2019-11-13 Telemedici [facility] 1.2.840.114 [id number] Univers 06:57:47 07:27:47 ne Visit Chay aSpp PRIMARY 350.1.13.10 [place] [id number] [address] 2019-07-25 2019-07-25 Patient [facility] 1.2.840.114 [id number] Univers 00:00:00 00:00:00 Secure Msg Chay J PRIMARY 350.1.13.10 [place] [id number] [address] 2019-07-17 2019-07-17 Telephone [facility] 1.2.452.310 [id number] Univers 00:00:00 00:00:00 Chay J PRIMARY 350.1.13.10 [place] [id number] [address] 2019-02-20 2019-02-20 Office [facility] 1.2.840.114 [id number] Univers 09:47:45 16:38:57 Visit Chay J PRIMARY 350.1.13.10 ity of CARE 4.2.7.2.686 [place] PAVILLION [id number] Ny dical [address] 2019-02-20 2019-02-20 A&P Technician Pcp-Lab [facility] 1.2.840.114 [id number] [facility] 11:19:17 11:29:17 Visit Urban, Chay Sapp PRIMARY 350.1.13.10 ity of CARE 4.2.7.2.686 Ricardo kumar PAVILLION [phone] Ny dical [address] 2019-02-20 2019-02-20 Orders Doctor STAR 1.2.840.114 [id number] 00:00:00 00:00:00 Only Unassigned, MELONIE 350.1.13.10 ity of [place] [facility] 4.2.7.2.686 [place]án as [phone] [place] [address] [address] 2019-01-03 2019-01-03 Outpatient [facility] [id number] Memoria 14:30:00 14:30:00 00 selena [place] 2018-09-12 2018-09-13 Inpatient [facility] [id number] Memoria 15:55:00 23:41:00 ryan [facility] 2018-09-12 2018-09-13 Outpatient [facility] [id number] 10:55:00 18:41:00 Star L[facility]ola [place] 2018-08-08 2018-08-09 Outpatient [facility] [id number] Memoria 13:31:00 05:59:00 ryan [facility] 2018-08-08 2018-08-08 Outpatient [facility] [id number] 07:31:00 23:59:00 Star Barony 2018-08-07 2018-08-07 Outpatient [facility] [id number] eClinic 16:01:00 16:01:00 [facility] 2018-08-06 2018-08-06 Outpatient [facility] [id number] eClinic 15:00:00 15:00:00 [facility] 2018-05-29 2018-05-30 Outpatient [facility] [id number] Memoria 16:01:00 05:59:00 r [place] 01 l [facility] 2018-05-29 2018-05-29 [id number] 10:01:00 23:59:00 Star Marietta Esvin 2018-04-13 2018-04-13 [facility] [id number] Memoria 11:44:00 15:48:00 Outpatient r [place] 00 l [facility] 2018-04-13 2018-04-13 [facility] [employer] [id number] 06:44:00 10:48:00 Star Ronny Esvin Results Test Description Test Time Test Comments Results Result Comments Source HEMATOLOGY 2018-09-13 10:27:00 Test Item Value Reference Range Interpretation Comme nts Neutrophils # (test code = Neutrophils #) 11.6 1.5-8.1 [facility] LakeOoysvuqHEARVZJXET8721-53-47 10:27:00 Test Item Value Reference Range Interpretation Comments Eosinophils (test code = 0.1 See_Comment [A utomated message] The Eosinophils) system which ge nerated this result tra nsmitted reference range : <=4.0. The reference r doug was not used to int erpret this result as normal/abnormal . [facility] LakeWnuhbtdHOFOXTWOEF9990-27-84 10:27:00 Test Item Value Reference Range Interpretation Comments Basophils (test code = 0.2 See_Comment [Aut omated message] The Basophils) system which ge nerated this result tra nsmitted reference range : <=1.0. The reference r doug was not used to int erpret this result as normal/abnormal . [facility]2019-03-21 10:27:00 Test Item Value Reference Range Interpretation Comments eGFR (test code = eGFR) 99 [facility]2019-03-21 10:27:00 Test Item Value Reference Range Interpretation Comments Creatinine Lvl (test code = Creatinine 0.80 0.50-1.40 Lvl) [facility]2019-03-21 10:27:00 Test Item Value Reference Range Interpretation Comments CO2 (test code = CO2) 21 24-32 [facility]2019-03-21 10:27:00 Test Item Value Reference Range Interpretation Comments Sodium Lvl (test code = Sodium Lvl) 140 135-145 [facility]2019-03-21 10:27:00 Test Item Value Reference Range Interpretation Comments Potassium Lvl (test code = Potassium 4.1 3.5-5.1 Lvl) [facility]2019-03-21 10:27:00 Test Item Value Reference Range Interpretation Comments Chloride Lvl (test code = Chloride Lvl) 105 95-109 [facility]2019-03-21 10:27:00 Test Item Value Reference Range Interpretation Comments Glucose Lvl (test code = Glucose Lvl) 237 70-99 [facility]2019-03-21 10:27:00 Test Item Value Reference Range Interpretation Comments Calcium Lvl (test code = Calcium Lvl) 8.2 8.5-10.5 [facility]2019-03-21 10:27:00 Test Item Value Reference Range Interpretation Comments BUN (test code = BUN) 8 7-22 [facility]2019-03-21 10:27:00 Test Item Value Reference Range Interpretation Comments AGAP (test code = AGAP) 18.1 10.0-20.0 [facility] LakeLipqumoVOKOOHDQGR8546-97-06 10:27:00 Test Item Value Reference Range Interpretation Comments RDW (test code = RDW) 13.3 11.5-14.5 [facility] LakeExsbwabYMCEVFIJUI9297-54-82 10:27:00 Test Item Value Reference Range Interpretation Comments MCHC (test code = MCHC) 32.8 32.0-36.0 [facility] LakeTawohmsQGEZFTBMRD0297-58-01 10:27:00 Test Item Value Reference Range Interpretation Comments MPV (test code = MPV) 8.8 7.4-10.4 [facility] LakeBvqamfuWFGZTFFZEE3400-49-31 10:27:00 Test Item Value Reference Range Interpretation Comments Platelet (test code = Platelet) 250 133-450 [facility] LakeOzzgynlDRJRGATPKT2163-85-03 10:27:00 Test Item Value Reference Range Interpretation Comments MCV (test code = MCV) 91.5 80.0-98.0 [facility] LakeGclpeoyISOOTCJSAS6601-99-79 10:27:00 Test Item Value Reference Range Interpretation Comments Hct (test code = Hct) 38.7 36.0-48.0 [facility] LakeQfzsjyxECLGDEWXLJ2975-44-89 10:27:00 Test Item Value Reference Range Interpretation Comments MCH (test code = MCH) 30.0 pg 27.0-31.0 [facility]dxxnmxXGPSRSAZDU2110-96-01 10:27:00 Test Item Value Reference Range Interpretation Comments Hgb (test code = Hgb) 12.7 12.0-16.0 [facility] LakeZzzjnejNVZXDEILIF0811-86-81 10:27:00 Test Item Value Reference Range Interpretation Comments RBC (test code = RBC) 4.23 4.20-5.40 [facility] LakeVwdddyaWOHHIZZFJV5115-46-49 10:27:00 Test Item Value Reference Range Interpretation Comments WBC (test code = WBC) 14.8 3.7-10.4 [facility] LakeAsokjybRQMWBAUXGY0092-97-38 10:27:00 Test Item Value Reference Range Interpretation Comments Monocytes # (test code 1.1 See_Comment [Aut omated message] The = Monocytes #) system which generated this result tra nsmitted reference range : <=0.8. The reference r doug was not used to int erpret this result as normal/abnormal . [facility] LakeCbrpmcaCRLCGHPPBD6734-57-25 10:27:00 Test Item Value Reference Range Interpretation Comments Lymphocytes (test code = Lymphocytes) 13.8 20.0-40.0 [facility] LakeNtzaizyYVJGOBBQPC4687-08-20 10:27:00 Test Item Value Reference Range Interpretation Comments Segs (test code = Segs) 78.5 45.0-75.0 [facility] LakeNcdehetHMMALRHPKD6917-99-69 10:27:00 Test Item Value Reference Range Interpretation Comments Monocytes (test code = Monocytes) 7.4 2.0-12.0 [facility] LakeFcikwtlDYPFYIPKHG3415-24-48 10:27:00 Test Item Value Reference Range Interpretation Comments Lymphocytes # (test code = Lymphocytes 2.0 1.0-5.5 #) [facility] [id number] 11:55:00 Test Item Value Reference Range Interpretation Comments ABO/Rh (test code = ABO/Rh) O POS [facility] LGEWXEK8192-32-68 11:55:00 Test Item Value Reference Range Interpretation Comments Antibody Scrn (test Negative (09/12/18 6:55 code = Antibody Scrn) AM) [facility] AND [id number] 14:49:00 Test Item Value Reference Range Interpretation Comments UA RBC (test code = no gt See_Comment [Automa eunice message] The UA RBC) system which ge nerated this result transmit eunice reference range : <=2. The reference range was not used to interpr et this result as jannette l/abnormal. [facility] AND [id number] 14:49:00 Test Item Value Reference Range Interpretation Comments UA WBC (test code = no gt See_Comment [Automa eunice message] The UA WBC) system which ge nerated this result transmit eunice reference range : <=5. The reference range was not used to interpr et this result as jannette l/abnormal. [facility] AND [id number] 14:49:00 Test Item Value Reference Range Interpretation Comments Micro? (test code = Performed (09/07/18 9:49 Micro?) AM) [facility] AND [id number] 14:49:00 Test Item Value Reference Range Interpretation Comments UA Leuk Est (test Negative (09/07/18 9:49 code = UA Leuk Est) AM) [facility] AND [id number] 14:49:00 Test Item Value Reference Range Interpretation Comments UA Sq Epi (test code = UA Sq Occasional /LPF Epi) [facility] AND [id number] 14:49:00 Test Item Value Reference Range Interpretation Comments UA Urobilinogen (test code = UA <=1.0 mg/dL 0.1-1.0 Urobilinogen) [facility] AND [id number] 14:49:00 Test Item Value Reference Range Interpretation Comments UA Blood (test code = Negative (09/07/18 9:49 UA Blood) AM) [facility] AND [id number] 14:49:00 Test Item Value Reference Range Interpretation Comments UA Nitrite (test code Negative (09/07/18 9:49 = UA Nitrite) AM) [facility] AND [id number] 14:49:00 Test Item Value Reference Range Interpretation Comments UA Spec Grav (test code = UA Spec 1.026 1 Grav) [facility] AND [id number] 14:49:00 Test Item Value Reference Range Interpretation Comments UA pH (test code = UA pH) 5.0 1 5.0-8.0 [facility] [id number] 14:49:00 Test Item Value Reference Range Interpretation Comments UA Glucose (test code = UA Glucose) 500 [facility] [id number] 14:49:00 Test Item Value Reference Range Interpretation Comments UA Protein (test code Negative (09/07/18 9:49 = UA Protein) AM) [facility] [id number] 14:49:00 Test Item Value Reference Range Interpretation Comments UA Bili (test code = Negative *NA*(09/07/18 UA Bili) 9:49 AM) [facility] [id number] 14:49:00 Test Item Value Reference Range Interpretation Comments UA Ketones (test code = UA Ketones) 20 mg/dL [facility] [id number] 14:49:00 Test Item Value Reference Range Interpretation Comments UA Color (test code = Light Yellow UA Color) *NA*(09/07/18 9:49 AM) [facility] [id number] 14:49:00 Test Item Value Reference Range Interpretation Comments UA Turbidity (test code = Clear (09/07/18 9:49 UA Turbidity) AM) [facility] [id number] 14:42:00 Test Item Value Reference Range Interpretation Comments Vitamin D, 25-OH, Total (test code = 15.0 30.0-100.0 Vitamin D, 25-OH, Total) [facility]HUNPLJ7714-24-81 14:42:00 Test Item Value Reference Range Interpretation Comments AGAP (test code = AGAP) 15.7 10.0-20.0 [facility]EjvgyjiLNIUZRFFXDOG0471-21-82 14:42:00 Test Item Value Reference Range Interpretation Comments B/C Ratio (test code = B/C Ratio) 19 1 6-25 [facility]QwhfcbkRQHKEYDXDYWH2501-62-08 14:42:00 Test Item Value Reference Range Interpretation Comments A/G Ratio (test code = A/G Ratio) 1.0 1 0.7-1.6 [facility]EpekvxkMVDDWWMYZWKB7404-33-55 14:42:00 Test Item Value Reference Range Interpretation Comments Globulin (test code = Globulin) 3.7 2.7-4.2 [facility]HjlxoxrHAAMUPDZBPIL5340-85-30 14:42:00 Test Item Value Reference Range Interpretation Comments Albumin Lvl (test code = Albumin Lvl) 3.8 3.5-5.0 [facility]WvtmyggTCLRVBURQUYW6888-81-93 14:42:00 Test Item Value Reference Range Interpretation Comments CO2 (test code = CO2) 24 24-32 [facility] HospitalAjxylbsAAOCTOAVYIVF4148-06-33 14:42:00 Test Item Value Reference Range Interpretation Comments BUN (test code = BUN) 16 7-22 [facility] HospitalPcuedxsZOOVCFNJABOW5365-50-38 14:42:00 Test Item Value Reference Range Interpretation Comments Glucose Lvl (test code = Glucose Lvl) 199 70-99 [facility] HospitalEeiubvvRONUJUWIHDMW6624-30-68 14:42:00 Test Item Value Reference Range Interpretation Comments Alk Phos (test code = Alk Phos) 121 39-136 [facility] HospitalVciajduWQDPXBXZEVAA5680-15-93 14:42:00 Test Item Value Reference Range Interpretation Comments AST (test code = AST) 10 See_Comment [Auto mated message] The system which ge nerated this result transmit eunice reference range : <=37. The reference range was not used to interpr et this result as jannette l/abnormal. [facility] HospitalDpyruwqRGWIMSMFCJDG7752-18-17 14:42:00 Test Item Value Reference Range Interpretation Comments eGFR (test code = eGFR) 90 [facility] HospitalNarvqjdEYCBTZUXDWPX6101-32-22 14:42:00 Test Item Value Reference Range Interpretation Comments ALT (test code = ALT) 27 See_Comment [Auto mated message] The system which ge nerated this result transmit eunice reference range : <=65. The reference range was not used to interpr et this result as jannette l/abnormal. [facility] HospitalKwbdojzHQJXCDSNQKRR6530-04-38 14:42:00 Test Item Value Reference Range Interpretation Comments Creatinine Lvl (test code = Creatinine 0.86 0.50-1.40 Lvl) [facility] HospitalHjgxpgfJLIAMKCXUIVG8668-06-22 14:42:00 Test Item Value Reference Range Interpretation Comments Total Protein (test code = Total 7.5 6.4-8.4 Protein) [facility] HospitalFilgpefAIGALHYGOPAZ6417-54-25 14:42:00 Test Item Value Reference Range Interpretation Comments Bili Total (test code = Bili Total) 0.9 0.2-1.3 [facility] HospitalCpvbdxnTOLTKMVJPBPR3380-77-42 14:42:00 Test Item Value Reference Range Interpretation Comments Sodium Lvl (test code = Sodium Lvl) 140 135-145 [facility] HospitalDsbmqzsXWFVYTMAZQOF1298-39-68 14:42:00 Test Item Value Reference Range Interpretation Comments Potassium Lvl (test code = Potassium 3.7 3.5-5.1 Lvl) [facility] HospitalNkzpjzoAVTFLHOLQCUA3469-85-28 14:42:00 Test Item Value Reference Range Interpretation Comments Chloride Lvl (test code = Chloride Lvl) 104 95-109 [facility] HospitalJnuxornZKMTNNNHQGPJ3020-96-54 14:42:00 Test Item Value Reference Range Interpretation Comments Calcium Lvl (test code = Calcium Lvl) 8.8 8.5-10.5 [facility] LakeXlkszqqPMOSKGFROZ2783-59-60 14:42:00 Test Item Value Reference Range Interpretation Comments Platelet (test code = Platelet) 299 133-450 [facility] LakeFqqseifQBMKLXJXJM2832-81-76 14:42:00 Test Item Value Reference Range Interpretation Comments RDW (test code = RDW) 13.0 11.5-14.5 [facility] LakeRqajonxTSDEYOBCKR3005-00-29 14:42:00 Test Item Value Reference Range Interpretation Comments MPV (test code = MPV) 8.8 7.4-10.4 [facility] LakeOvgwoggZIPMXWHAYS4646-81-12 14:42:00 Test Item Value Reference Range Interpretation Comments RBC (test code = RBC) 4.77 4.20-5.40 [facility] LakeKmatqdaWRQXRWVMSL0968-37-36 14:42:00 Test Item Value Reference Range Interpretation Comments Hgb (test code = Hgb) 14.5 12.0-16.0 [facility] LakeTijobfjAQMPVGREIK3942-04-82 14:42:00 Test Item Value Reference Range Interpretation Comments Hct (test code = Hct) 42.7 36.0-48.0 [facility] LakeJjtrufgPBOUYFSTDU3135-31-85 14:42:00 Test Item Value Reference Range Interpretation Comments MCV (test code = MCV) 89.7 80.0-98.0 [facility] LakeQzfphyeFZQKKDYZYZ1157-65-20 14:42:00 Test Item Value Reference Range Interpretation Comments MCH (test code = MCH) 30.5 pg 27.0-31.0 [facility] LakeSjdwopoBXDDOECGXW5261-65-52 14:42:00 Test Item Value Reference Range Interpretation Comments MCHC (test code = MCHC) 34.0 32.0-36.0 [facility] LakeFmvfvugDSGGRQHPRK0001-02-00 14:42:00 Test Item Value Reference Range Interpretation Comments WBC (test code = WBC) 7.8 3.7-10.4 [facility] LakeOxlxflyAOSPMHJAVG1123-43-21 14:42:00 Test Item Value Reference Range Interpretation Comments PTT (test code = PTT) 28.6 s 22.9-35.8 [facility] LakeHjhmhbyFXXMWJANGD7435-19-27 14:42:00 Test Item Value Reference Range Interpretation Comments PT (test code = PT) 12.2 s 12.0-14.7 [facility] LakeHsjwyggFGKWUESSRV8176-38-42 14:42:00 Test Item Value Reference Range Interpretation Comments INR (test code = INR) 0.92 1 0.85-1.17 [facility] LakeHrgahejPAUKDUSZVG6987-07-98 14:42:00 Test Item Value Reference Range Interpretation Comments Basophils (test code = 0.3 See_Comment [Aut omated message] The Basophils) system which ge nerated this result tra nsmitted reference range : <=1.0. The reference r doug was not used to int erpret this result as normal/abnormal . [facility] LakeOesrkpkMVFEVDMCSW5255-90-14 14:42:00 Test Item Value Reference Range Interpretation Comments Lymphocytes # (test code = Lymphocytes 2.3 1.0-5.5 #) [facility] LakeCyrudikCXSCBVZLZG1222-52-93 14:42:00 Test Item Value Reference Range Interpretation Comments Neutrophils # (test code = Neutrophils 4.8 1.5-8.1 #) [facility] LakeBhgrowbKNALKEFWSE8862-67-75 14:42:00 Test Item Value Reference Range Interpretation Comments Monocytes # (test code 0.7 See_Comment [Aut omated message] The = Monocytes #) system which generated this result tra nsmitted reference range : <=0.8. The reference r doug was not used to int erpret this result as normal/abnormal . [facility] LakeKgfezppJHWSSCQDLC2817-19-92 14:42:00 Test Item Value Reference Range Interpretation Comments Segs (test code = Segs) 60.9 45.0-75.0 [facility] LakeNynsjadIHIYBGDWMB4308-95-06 14:42:00 Test Item Value Reference Range Interpretation Comments Eosinophils (test code = 1.4 See_Comment [A utomated message] The Eosinophils) system which ge nerated this result tra nsmitted reference range : <=4.0. The reference r doug was not used to int erpret this result as normal/abnormal . [facility] LakeGswapmgVOWIIKJMFL8349-23-69 14:42:00 Test Item Value Reference Range Interpretation Comments Lymphocytes (test code = Lymphocytes) 28.9 20.0-40.0 [facility] LakePcynbyfPJZQJZKPZJ4462-16-71 14:42:00 Test Item Value Reference Range Interpretation Comments Monocytes (test code = Monocytes) 8.5 2.0-12.0 [facility] LakeLqjuouqYVVIUQVYJZ0843-64-90 14:42:00 Test Item Value Reference Range Interpretation Comments Eosinophils # (test code 0.1 See_Comment [A utomated message] The = Eosinophils #) system whic h generated this result tra nsmitted reference range : <=0.5. The reference r doug was not used to int erpret this result as normal/abnormal . [facility] CampusAframe [id number] 16:36:00 Test Item Value Reference Range Interpretation Comments VITAMIN B1 (THIAMINE) WHOLE BLOOD (test 178.5 66.5-200.0 code = VITAMIN B1 (THIAMINE) WHOLE BLOOD) [facility]2019-01-18 16:36:00 Test Item Value Reference Range Interpretation Comments Vitamin D, 25-OH, Total (test code = 17.9 30.0-100.0 Vitamin D, 25-OH, Total) [facility]2019-01-18 16:36:00 Test Item Value Reference Range Interpretation Comments eGFR (test code = eGFR) 64 [facility]2019-01-18 16:36:00 Test Item Value Reference Range Interpretation Comments Bili Total (test code = Bili Total) 0.5 0.2-1.3 [facility]2019-01-18 16:36:00 Test Item Value Reference Range Interpretation Comments Glucose Lvl (test code = Glucose Lvl) 352 70-99 [facility] [facility]00 Test Item Value Reference Range Interpretation Comments ALT (test code = ALT) 31 See_Comment [Auto mated message] The system which ge nerated this result transmit eunice reference range : <=65. The reference range was not used to interpr et this result as jannette l/abnormal. [facility]2019-01-18 16:36:00 Test Item Value Reference Range Interpretation Comments AST (test code = AST) 18 See_Comment [Auto mated message] The system which ge nerated this result transmit eunice reference range : <=37. The reference range was not used to interpr et this result as jannette l/abnormal. [facility]2019-01-18 16:36:00 Test Item Value Reference Range Interpretation Comments Alk Phos (test code = Alk Phos) 140 39-136 [facility]2019-01-18 16:36:00 Test Item Value Reference Range Interpretation Comments Calcium Lvl (test code = Calcium Lvl) 9.2 8.5-10.5 [facility]2019-01-18 16:36:00 Test Item Value Reference Range Interpretation Comments Total Protein (test code = Total 8.2 6.4-8.4 Protein) [facility]2019-01-18 16:36:00 Test Item Value Reference Range Interpretation Comments Albumin Lvl (test code = Albumin Lvl) 4.0 3.5-5.0 [facility]2019-01-18 16:36:00 Test Item Value Reference Range Interpretation Comments Potassium Lvl (test code = Potassium 3.6 3.5-5.1 Lvl) [facility]2019-01-18 16:36:00 Test Item Value Reference Range Interpretation Comments Chloride Lvl (test code = Chloride Lvl) 99 95-109 [facility]2019-01-18 16:36:00 Test Item Value Reference Range Interpretation Comments CO2 (test code = CO2) 23 24-32 [facility]2019-01-18 16:36:00 Test Item Value Reference Range Interpretation Comments BUN (test code = BUN) 18 7-22 [facility]2019-01-18 16:36:00 Test Item Value Reference Range Interpretation Comments Creatinine Lvl (test code = Creatinine 1.15 0.50-1.40 Lvl) [facility]2019-01-18 16:36:00 Test Item Value Reference Range Interpretation Comments Sodium Lvl (test code = Sodium Lvl) 135 135-145 [facility]2019-01-18 16:36:00 Test Item Value Reference Range Interpretation Comments B/C Ratio (test code = B/C Ratio) 16 1 6-25 [facility]2019-01-18 16:36:00 Test Item Value Reference Range Interpretation Comments Globulin (test code = Globulin) 4.2 2.7-4.2 [facility]2019-01-18 16:36:00 Test Item Value Reference Range Interpretation Comments A/G Ratio (test code = A/G Ratio) 1.0 1 0.7-1.6 [facility]2019-01-18 16:36:00 Test Item Value Reference Range Interpretation Comments AGAP (test code = AGAP) 16.6 10.0-20.0 [facility]tkmyiyFUIDKGESUD6652-14-10 16:36:00 Test Item Value Reference Range Interpretation Comments Hgb (test code = Hgb) 14.8 12.0-16.0 [facility] LakeAtcuafdUCWMCKNHGM5063-00-92 16:36:00 Test Item Value Reference Range Interpretation Comments MCV (test code = MCV) 90.3 80.0-98.0 [facility] LakeQizjfmdFYDCOAUHZT8095-29-21 16:36:00 Test Item Value Reference Range Interpretation Comments Hct (test code = Hct) 43.6 36.0-48.0 [facility] LakeJldehbvWWUAAJDCAK0636-14-69 16:36:00 Test Item Value Reference Range Interpretation Comments RBC (test code = RBC) 4.82 4.20-5.40 [facility] LakeCgglmqlPZGTZZEDIJ8752-01-10 16:36:00 Test Item Value Reference Range Interpretation Comments MCHC (test code = MCHC) 34.0 32.0-36.0 [facility] LakeMmbmpppXEQHTCMMRF2944-04-64 16:36:00 Test Item Value Reference Range Interpretation Comments MCH (test code = MCH) 30.7 pg 27.0-31.0 [facility] LakeIuxblxoAAIXUUZQLF5962-31-98 16:36:00 Test Item Value Reference Range Interpretation Comments WBC (test code = WBC) 10.7 3.7-10.4 [facility] LakeLlmzcamMBPNNTWIQJ7753-12-33 16:36:00 Test Item Value Reference Range Interpretation Comments MPV (test code = MPV) 9.1 7.4-10.4 [facility] LakeJepcxcuMABJJSMYRT0440-27-01 16:36:00 Test Item Value Reference Range Interpretation Comments Platelet (test code = Platelet) 326 133-450 [facility] LakeGpcmktgKXGLOCUJNY2131-36-48 16:36:00 Test Item Value Reference Range Interpretation Comments RDW (test code = RDW) 14.1 11.5-14.5 [facility] LakeKjanjbvVEGIKHKIYL2440-33-64 16:36:00 Test Item Value Reference Range Interpretation Comments Segs (test code = Segs) 71.3 45.0-75.0 [facility] LakeObsqlrjYYYAUYBKBL3317-52-33 16:36:00 Test Item Value Reference Range Interpretation Comments Lymphocytes (test code = Lymphocytes) 21.1 20.0-40.0 [facility] LakeFaqjeivTJOGZYCOBG8844-62-80 16:36:00 Test Item Value Reference Range Interpretation Comments Eosinophils (test code = 1.7 See_Comment [A utomated message] The Eosinophils) system which ge nerated this result tra nsmitted reference range : <=4.0. The reference r doug was not used to int erpret this result as normal/abnormal . [facility] LakeEtfmjmpVCQNAXGYCS5341-61-45 16:36:00 Test Item Value Reference Range Interpretation Comments Monocytes (test code = Monocytes) 5.4 2.0-12.0 [facility] LakeOlhnpqwZMKAHGHOJK1645-31-83 16:36:00 Test Item Value Reference Range Interpretation Comments Basophils (test code = 0.5 See_Comment [Aut omated message] The Basophils) system which ge nerated this result tra nsmitted reference range : <=1.0. The reference r doug was not used to int erpret this result as normal/abnormal . [facility] LakeWbqruafJDKHBRSXHU1030-49-99 16:36:00 Test Item Value Reference Range Interpretation Comments Monocytes # (test code 0.6 See_Comment [Aut omated message] The = Monocytes #) system which generated this result tra nsmitted reference range : <=0.8. The reference r doug was not used to int erpret this result as normal/abnormal . [facility] LakeXmeipxjASHIEPQTHN6529-29-16 16:36:00 Test Item Value Reference Range Interpretation Comments Eosinophils # (test code 0.2 See_Comment [A utomated message] The = Eosinophils #) system whic h generated this result tra nsmitted reference range : <=0.5. The reference r doug was not used to int erpret this result as normal/abnormal . [facility]cdrphjTRDGCRAIEN6819-74-83 16:36:00 Test Item Value Reference Range Interpretation Comments Basophils # (test code 0.1 See_Comment [Aut omated message] The = Basophils #) system which generated this result tra nsmitted reference range : <=0.2. The reference r doug was not used to int erpret this result as normal/abnormal . [facility]intZsrwixaOTQEYOJHNJ1867-73-32 16:36:00 Test Item Value Reference Range Interpretation Comments Lymphocytes # (test code = Lymphocytes 2.3 1.0-5.5 #) [facility]intRmghqidOBIWTWRPZL1552-72-97 16:36:00 Test Item Value Reference Range Interpretation Comments Neutrophils # (test code = Neutrophils 7.6 1.5-8.1 #) [facility] LakeXkqdlfbFTFPNHMFAY5372-21-12 16:36:00 Test Item Value Reference Range Interpretation Comments PT (test code = PT) 11.5 s 12.0-14.7 [facility]intPvwvxfwFUSDVELOVW2634-67-96 16:36:00 Test Item Value Reference Range Interpretation Comments INR (test code = INR) 0.85 1 0.85-1.17 [facility]FlintNochvlnRTFFNESSBO2802-38-71 16:36:00 Test Item Value Reference Range Interpretation Comments PTT (test code = PTT) 26.0 s 22.9-35.8 [facility] OABQKXTFB0323-48-02 16:36:00 Test Item Value Reference Range Interpretation Comments Hgb A1C (test code = Hgb A1C) 10.9 [facility] AND [id number] 16:10:00 Test Item Value Reference Range Interpretation Comments UA WBC (test code = no gt See_Comment [Automa eunice message] The UA WBC) system which ge nerated this result transmit eunice reference range : <=5. The reference range was not used to interpr et this result as jannette l/abnormal. [facility] AND [id number] 16:10:00 Test Item Value Reference Range Interpretation Comments UA Bacteria (test code = UA Occasional /HPF Bacteria) [facility] AND [id number] 16:10:00 Test Item Value Reference Range Interpretation Comments UA RBC (test code = no gt See_Comment [Automa eunice message] The UA RBC) system which ge nerated this result transmit eunice reference range : <=2. The reference range was not used to interpr et this result as jannette l/abnormal. [facility] AND [id number] 16:10:00 Test Item Value Reference Range Interpretation Comments UA Mucus (test code = UA Mucus) Few /LPF [facility] AND [id number] 16:10:00 Test Item Value Reference Range Interpretation Comments UA Ketones (test code = UA Ketones) 20 mg/dL [facility] AND [id number] 16:10:00 Test Item Value Reference Range Interpretation Comments UA Glucose (test code = UA Glucose) 500 [facility] AND [id number] 16:10:00 Test Item Value Reference Range Interpretation Comments UA Bili (test code = Negative *NA*(07/13/18 UA Bili) 10:10 AM) [facility] AND [id number] 16:10:00 Test Item Value Reference Range Interpretation Comments UA Blood (test code = Moderate *ABN*(07/13/18 UA Blood) 10:10 AM) [facility] AND [id number] 16:10:00 Test Item Value Reference Range Interpretation Comments UA Urobilinogen (test code = UA <=1.0 mg/dL 0.1-1.0 Urobilinogen) [facility] AND [id number] 16:10:00 Test Item Value Reference Range Interpretation Comments UA Nitrite (test code Negative (07/13/18 10:10 = UA Nitrite) AM) [facility] AND [id number] 16:10:00 Test Item Value Reference Range Interpretation Comments UA Leuk Est (test Negative (07/13/18 10:10 code = UA Leuk Est) AM) [facility] AND [id number] 16:10:00 Test Item Value Reference Range Interpretation Comments UA Sq Epi (test code = UA Sq Epi) Few /LPF [facility] AND [id number] 16:10:00 Test Item Value Reference Range Interpretation Comments UA Spec Grav (test code = UA Spec 1.026 1 Grav) [facility] AND [id number] 16:10:00 Test Item Value Reference Range Interpretation Comments UA Protein (test code Negative (07/13/18 10:10 = UA Protein) AM) [facility] [id number] 16:10:00 Test Item Value Reference Range Interpretation Comments UA pH (test code = UA pH) 5.0 1 5.0-8.0 [facility] AND [id number] 16:10:00 Test Item Value Reference Range Interpretation Comments UA Turbidity (test code = Clear (07/13/18 10:10 UA Turbidity) AM) [facility] [id number] 16:10:00 Test Item Value Reference Range Interpretation Comments UA Color (test code = UA Color) [facility] [id number] 17:05:00 Test Item Value Reference Range Interpretation Comments Vitamin D, 25-OH, Total (test code = 16.9 30.0-100.0 Vitamin D, 25-OH, Total) [facility] [id number] 17:05:00 Test Item Value Reference Range Interpretation Comments VITAMIN B1 (THIAMINE) WHOLE BLOOD (test 130.8 66.5-200.0 code = VITAMIN B1 (THIAMINE) WHOLE BLOOD) [facility] HospitalWpzxiryNHIMRNIWAQON8243-95-10 17:05:00 Test Item Value Reference Range Interpretation Comments Sodium Lvl (test code = Sodium Lvl) 141 135-145 [facility] HospitalLyvwvemVBLJBDRJWKSK6375-12-83 17:05:00 Test Item Value Reference Range Interpretation Comments Potassium Lvl (test code = Potassium 3.8 3.5-5.1 Lvl) [facility] HospitalNbqxvphFYEBYGQNUBAP8663-22-60 17:05:00 Test Item Value Reference Range Interpretation Comments Chloride Lvl (test code = Chloride Lvl) 101 95-109 [facility] HospitalEczljeeMFUMJOBCZDIK6589-99-23 17:05:00 Test Item Value Reference Range Interpretation Comments Albumin Lvl (test code = Albumin Lvl) 3.7 3.5-5.0 [facility] HospitalPaaphdvVRVXHSQHRJWR8982-25-67 17:05:00 Test Item Value Reference Range Interpretation Comments Calcium Lvl (test code = Calcium Lvl) 9.5 8.5-10.5 [facility] HospitalDoejilcTTIXPDHDSCRJ8192-65-76 17:05:00 Test Item Value Reference Range Interpretation Comments CO2 (test code = CO2) 25 24-32 [facility] HospitalKzbljtlZYFORXCNSTOH5938-38-92 17:05:00 Test Item Value Reference Range Interpretation Comments eGFR (test code = eGFR) 61 [facility] HospitalFsxtpxnNAPRYSZYWAML0576-76-48 17:05:00 Test Item Value Reference Range Interpretation Comments ALT (test code = ALT) 38 See_Comment [Auto mated message] The system which ge nerated this result transmit eunice reference range : <=65. The reference range was not used to interpr et this result as jannette l/abnormal. [facility] HospitalRqfafcsCVSBSDVHPMBP8273-48-21 17:05:00 Test Item Value Reference Range Interpretation Comments AST (test code = AST) 20 See_Comment [Auto mated message] The system which ge nerated this result transmit eunice reference range : <=37. The reference range was not used to interpr et this result as jannette l/abnormal. [facility] HospitalBmzzxmfVIYXOFZPZDME7036-18-07 17:05:00 Test Item Value Reference Range Interpretation Comments Glucose Lvl (test code = Glucose Lvl) 283 70-99 [facility] HospitalDovlgvtLWQVDRQNYRZE5017-25-39 17:05:00 Test Item Value Reference Range Interpretation Comments Creatinine Lvl (test code = Creatinine 1.19 0.50-1.40 Lvl) [facility] HospitalEazbqeaBSTFXAPUNSYZ1095-01-15 17:05:00 Test Item Value Reference Range Interpretation Comments BUN (test code = BUN) 15 7-22 [facility] HospitalAjhgvnaRWZMLRFJNCSD6071-97-68 17:05:00 Test Item Value Reference Range Interpretation Comments Bili Total (test code = Bili Total) 0.5 0.2-1.3 [facility] HospitalWeyqrelFXBSMLANAKJE6736-72-75 17:05:00 Test Item Value Reference Range Interpretation Comments Alk Phos (test code = Alk Phos) 139 39-136 [facility] HospitalFfjnlasEZZXECKWIVNX1458-76-38 17:05:00 Test Item Value Reference Range Interpretation Comments Total Protein (test code = Total 7.6 6.4-8.4 Protein) [facility] HospitalFwrrccgYLTRQFCKWPZZ8621-78-65 17:05:00 Test Item Value Reference Range Interpretation Comments AGAP (test code = AGAP) 18.8 10.0-20.0 [facility] HospitalWulkyakRCHKRNOVZYEW8882-16-37 17:05:00 Test Item Value Reference Range Interpretation Comments B/C Ratio (test code = B/C Ratio) 13 1 6-25 [facility] HospitalWfmvaouCUNCLNKKKPUN8369-84-43 17:05:00 Test Item Value Reference Range Interpretation Comments Globulin (test code = Globulin) 3.9 2.7-4.2 [facility] HospitalKupfhprLYMNYBUCMIIW0275-28-46 17:05:00 Test Item Value Reference Range Interpretation Comments A/G Ratio (test code = A/G Ratio) 0.9 1 0.7-1.6 [facility] LakeEweqdraFUIEYVZXKX5260-68-29 17:05:00 Test Item Value Reference Range Interpretation Comments PTT (test code = PTT) 26.4 s 22.9-35.8 [facility] LakePktlxtnXMNQCNYHSU0209-58-24 17:05:00 Test Item Value Reference Range Interpretation Comments INR (test code = INR) 0.85 1 0.85-1.17 [facility] LakeQbbfwfhRDDDCDLVZE4446-06-75 17:05:00 Test Item Value Reference Range Interpretation Comments PT (test code = PT) 11.5 s 12.0-14.7 [facility] LakeLzkaiydDQWDIDVXDL6240-18-81 17:05:00 Test Item Value Reference Range Interpretation Comments MPV (test code = MPV) 9.3 7.4-10.4 [facility] LakeNmyndvpQIUFKVFOJI0238-81-28 17:05:00 Test Item Value Reference Range Interpretation Comments Platelet (test code = Platelet) 316 133-450 [facility] LakeNjjtujcWIRUBDBMZJ9676-43-41 17:05:00 Test Item Value Reference Range Interpretation Comments RDW (test code = RDW) 13.3 11.5-14.5 [facility] LakeMjczldlYXFACDXQZS9545-13-45 17:05:00 Test Item Value Reference Range Interpretation Comments MCHC (test code = MCHC) 33.7 32.0-36.0 [facility] LakeVipjsdgDVFWVGICNN6648-07-50 17:05:00 Test Item Value Reference Range Interpretation Comments MCH (test code = MCH) 29.9 pg 27.0-31.0 [facility] LakeTcubzkhKGIGZRLFZQ4242-09-50 17:05:00 Test Item Value Reference Range Interpretation Comments MCV (test code = MCV) 88.8 80.0-98.0 [facility] LakeAomtesmTDPFLCHMWT8655-43-43 17:05:00 Test Item Value Reference Range Interpretation Comments Hct (test code = Hct) 43.4 36.0-48.0 [place] 225458-12-04 17:05:00 Test Item Value Reference Range Interpretation Comments Hgb (test code = Hgb) 14.6 12.0-16.0 [facility] LakeWluibshQHFADODLGC9464-98-04 17:05:00 Test Item Value Reference Range Interpretation Comments RBC (test code = RBC) 4.89 4.20-5.40 [facility] LakeOtfccduJZJCIDGGWK6293-92-24 17:05:00 Test Item Value Reference Range Interpretation Comments WBC (test code = WBC) 8.3 3.7-10.4 [facility] LakeYhwsnqmLHUCCLMFFP8616-79-79 17:05:00 Test Item Value Reference Range Interpretation Comments Lymphocytes # (test code = Lymphocytes 2.2 1.0-5.5 #) [facility] LakeAtawxiiYOVJQEMFUU1493-99-17 17:05:00 Test Item Value Reference Range Interpretation Comments Eosinophils # (test code 0.1 See_Comment [A utomated message] The = Eosinophils #) system [facility] h generated this result tra nsmitted reference range : <=0.5. The reference r doug was not used to int erpret this result as normal/abnormal . [facility] LakeYoygvajDWPZCOEFER0315-17-65 17:05:00 Test Item Value Reference Range Interpretation Comments Monocytes # (test code 0.5 See_Comment [Aut omated message] The = Monocytes #) system which generated this result tra nsmitted reference range : <=0.8. The reference r doug was not used to int erpret this result as normal/abnormal . [facility] LakeYsxxcrgIMAQEBVGZZ6508-66-65 17:05:00 Test Item Value Reference Range Interpretation Comments Eosinophils (test code = 0.9 See_Comment [A utomated message] The Eosinophils) system which ge nerated this result tra nsmitted reference range : <=4.0. The reference r doug was not used to int erpret this result as normal/abnormal . [facility] LakeZsgiddoNVPRZFSONO8959-13-72 17:05:00 Test Item Value Reference Range Interpretation Comments Basophils (test code = 0.4 See_Comment [Aut omated message] The Basophils) system which ge nerated this result tra nsmitted reference range : <=1.0. The reference r doug was not used to int erpret this result as normal/abnormal . [facility] LakeItsoecmRKQZKPQNKY6198-79-29 17:05:00 Test Item Value Reference Range Interpretation Comments Neutrophils # (test code = Neutrophils 5.6 1.5-8.1 #) [facility]vhyqmoDAHLNGRZEA5753-61-08 17:05:00 Test Item Value Reference Range Interpretation Comments Monocytes (test code = Monocytes) 6.2 2.0-12.0 [facility] JagjtdxUMCNEETIKA4107-32-55 17:05:00 Test Item Value Reference Range Interpretation Comments Lymphocytes (test code = Lymphocytes) 25.8 20.0-40.0 [facility] CampusXkcwrhcRTKDAJICBI8336-52-33 17:05:00 Test Item Value Reference Range Interpretation Comments Segs (test code = Segs) 66.7 45.0-75.[address] [facility] QJKRFHOYN3294-99-40 17:05:00 Test Item Value Reference Range Interpretation Comments Hgb A1C (test code = Hgb A1C) 11.2 [facility] AND [id number] 16:30:00 Test Item Value Reference Range Interpretation Comments UA Hyal Cast (test 3 See_Comment [Automat ed message] The code = UA Hyal Cast) system which generated this result transmit eunice reference range : <=2. The reference range was not used to interpr et this result as jannette l/abnormal. [facility] AND [id number] 16:30:00 Test Item Value Reference Range Interpretation Comments UA WBC (test code = 3 See_Comment [Automa eunice message] The UA WBC) system which ge nerated this result transmit eunice reference range : <=5. The reference range was not used to interpr et this result as jannette l/abnormal. [facility] AND [id number] 16:30:00 Test Item Value Reference Range Interpretation Comments UA Blood (test code = Negative (05/29/18 10:30 UA Blood) AM) [facility] AND [id number] 16:30:00 Test Item Value Reference Range Interpretation Comments UA RBC (test code = 2 See_Comment [Automa eunice message] The UA RBC) system which ge nerated this result transmit eunice reference range : <=2. The reference range was not used to interpr et this result as jannette l/abnormal. [facility] AND [id number] 16:30:00 Test Item Value Reference Range Interpretation Comments UA Bacteria (test code = UA Occasional /HPF Bacteria) [facility] AND [id number] 16:30:00 Test Item Value Reference Range Interpretation Comments UA Bili (test code = Negative *NA*(05/29/18 UA Bili) 10:30 AM) [facility] AND [id number] 16:30:00 Test Item Value Reference Range Interpretation Comments UA Urobilinogen (test code = UA <=1.0 mg/dL 0.1-1.0 Urobilinogen) [facility] AND [id number] 16:30:00 Test Item Value Reference Range Interpretation Comments UA Nitrite (test code Negative (05/29/18 10:30 = UA Nitrite) AM) [facility] AND [id number] 16:30:00 Test Item Value Reference Range Interpretation Comments UA Leuk Est (test Moderate *ABN*(05/29/18 code = UA Leuk Est) 10:30 AM) [facility] AND [id number] 16:30:00 Test Item Value Reference Range Interpretation Comments UA Sq Epi (test code = UA Sq Epi) Few /LPF [facility] AND [id number] 16:30:00 Test Item Value Reference Range Interpretation Comments UA Protein (test code Negative (05/29/18 10:30 = UA Protein) AM) [facility] AND [id number] 16:30:00 Test Item Value Reference Range Interpretation Comments UA Glucose (test code = UA Glucose) 500 [facility] AND [id number] 16:30:00 Test Item Value Reference Range Interpretation Comments UA Ketones (test code = UA Ketones) 20 mg/dL [facility] AND [id number] 16:30:00 Test Item Value Reference Range Interpretation Comments UA pH (test code = UA pH) 5.0 1 5.0-8.0 [facility] AND [id number] 16:30:00 Test Item Value Reference Range Interpretation Comments UA Turbidity (test code = Clear (05/29/18 10:30 UA Turbidity) AM) [facility] AND [id number] 16:30:00 Test Item Value Reference Range Interpretation Comments UA Spec Grav (test code = UA Spec 1.023 1 Grav) [facility] AND [id number] 16:30:00 Test Item Value Reference Range Interpretation Comments UA Color (test code = UA Color) Straw [facility] HospitalMpnuofmOVVSAPKLDVHO8571-30-14 12:59:00 Test Item Value Reference Range Interpretation Comments POC Sodium (test code = POC Sodium) 141 135-145 [facility] HospitalXgjpjtdNZDABSGKSTVJ8900-51-75 12:59:00 Test Item Value Reference Range Interpretation Comments POC Potassium (test code = POC 3.4 3.5-5.1 Potassium) [facility] HospitalEvsfpfvOXFGZGANMBYB5774-14-89 12:59:00 Test Item Value Reference Range Interpretation Comments POC Hematocrit (test code = POC 45.0 36.0-48.0 Hematocrit) [facility] HospitalExmfehoDKCLSNNOXQLB2388-05-74 12:59:00 Test Item Value Reference Range Interpretation Comments POC Hemoglobin (test code = POC 15.3 12.0-16.0 Hemoglobin) [facility] HospitalRyfpxfoDPPZXBQNJLLA8019-71-83 12:59:00 Test Item Value Reference Range Interpretation Comments POC Glucose (test code = POC Glucose) 220 70-99 [facility]
[2022-11-16] MEDS ORDERED: NA CHLORIDE 0.9% 1,000 ML ONE (19:46)
[2022-11-16] MEDS ORDERED: MECLIZINE HCL 12.5 MG TAB ONE (19:46)
[2022-11-16] MEDS ORDERED: Magnesium Sulfate 2gm IVPB 2 G/50 ML BAG IV ONE (19:46)
[2022-11-16 19:47] LABS: Absolute Lymphocytes (CBC) 1.6 K/uL (0.7-4.9); Hematocrit 34.3 % (36.0-45.0); Lymphocytes % 22.9 % (15.3-44.8); MCV 90.2 fL (80-100); MPV 7.7 fL (7.6-11.3)
[2022-11-16 20:36] LABS: ALT/SGPT 33 U/L (13-56); AST/SGOT 20 U/L (15-37); Albumin 3.6 g/dL (3.4-5.0); Alkaline Phosphatase 90 U/L (45-117); BUN Blood Urea Nitrogen 15 mg/dL (7-18); Bicarbonate 30 mEq/L (21-32); Bilirubin Total 0.4 mg/dL (0.2-1.0); Glomerular Filtration Rate 116 ml/min (=/>90); Glucose Level 139 mg/dL (74-106); Potassium 3.9 mEq/L (3.5-5.1); Protein, Total 7.1 g/dL (6.4-8.2); Sodium Level 140 mEq/L (136-145)
--- NOTE | 2022-11-16 20:54 | EDPHYS ---
Physician Documentation [facility] Name: Michael Ovalle Age: 37 yrs Sex: Female : 1985 Arrival Date: 11/16/2022 Time: 18:04 Bed 8 Private MD: ED Physician Andrea Lorenzo HPI: 11/16 19:57 This 37 yrs old Female presents to ER via Ambulatory with complaints of Dizziness. rt 19:57 Patient presents to the ED with a bifrontal headache that has been off and on for rt several months. Patient also reports a fullness in her ear. Occasionally, the patient would get episodes of dizziness, described as the room spinning. The symptoms did worsen today. Was sent to the ED for further evaluation. Patient states that the symptoms are worse when she turns her head, denies other acute complaints at this time, symptoms are moderate severity, no other aggravating leaving factors. 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 - Social history:: Smoking status: Patient denies any tobacco usage or history of. - Family history:: not pertinent. ROS: 19:57 Constitutional: Negative for fever, chills, and weight loss, Cardiovascular: Negative rt for chest pain, palpitations, and edema, Respiratory: Negative for shortness of breath, cough, wheezing, and pleuritic chest pain, Abdomen/GI: Negative for abdominal pain, nausea, vomiting, diarrhea, and constipation, Skin: Negative for injury, rash, and discoloration, Psych: Negative for depression, anxiety, suicide ideation, homicidal ideation, and hallucinations. 19:57 ENT: Positive for Sinus pain, fullness of the ears. 19:57 Neuro: Positive for dizziness, Negative for altered mental status. Exam: 20:08 Constitutional: This is a well developed, well nourished patient who is awake, alert, rt and in no acute distress. Neck: Trachea midline, no thyromegaly or masses palpated, and no cervical lymphadenopathy. Supple, full range of motion without nuchal rigidity, or vertebral point tenderness. No Meningismus. Chest/axilla: Normal chest wall appearance and motion. Nontender with no deformity. No lesions are appreciated. Cardiovascular: Regular rate and rhythm with a normal S1 and S2. No gallops, murmurs, or rubs. Normal PMI, no JVD. No pulse deficits. Respiratory: Lungs have equal breath sounds bilaterally, clear to auscultation and percussion. No rales, rhonchi or wheezes noted. No increased work of breathing, no retractions or nasal flaring. Abdomen/GI: Soft, non-tender, with normal bowel sounds. No distension or tympany. No guarding or rebound. No evidence of tenderness throughout. Skin: Warm, dry with normal turgor. Normal color with no rashes, no lesions, and no evidence of cellulitis. MS/ Extremity: Pulses equal, no cyanosis. Neurovascular intact. Full, normal range of motion. Neuro: Awake and alert, GCS 15, oriented to person, place, time, and situation. Cranial nerves II-XII grossly intact. Motor strength 5/5 in all extremities. Sensory grossly intact. Cerebellar exam normal. Normal gait. Psych: Awake, alert, with orientation to person, place and time. Behavior, mood, and affect are within normal limits. 20:08 Head/face: Tenderness over bilateral frontal sinuses. 20:08 Eyes: 5 beats of left going nystagmus, head impulse and test of skew negative. 20:08 Neuro: Speech normal, cranial nerves II through XII intact, strength and sensation intact in upper and lower extremities, no ataxia. No. Vital Signs: 18:29 BP 114 / 76; Pulse 77; Resp 16; Temp 97.9; Pulse Ox 100% on R/A; Weight 61.23 kg; iw Height 5 ft. 5 in. ; Pain 6/10; 19:00 BP 117 / 70; Pulse 64; Resp 16; Pulse Ox 100% ; vc1 20:00 BP 121 / 72; Pulse 63; Resp 16; Pulse Ox 100% ; vc1 18:29 Body Mass Index 22.46 (61.23 kg, 165.1 cm) iw 18:29 Pain Scale: Adult iw MDM: 18:57 Patient medically screened. rt 20:51 Data reviewed: vital signs, lab test result(s). ED course: Reviewed chart from prior sp3 charting by midlevel provider and Dr. Hall. Patient was also seen by me. She is stable with normal vital signs and no acute distress and feels much better after the medications that were given. Laboratory values demonstrate no significant abnormality. Patient already has prescriptions for antibiotics and meclizine which she will start when she gets home. Follow-up with PCP as needed. Patient has an ENT doctor in [place] which she will also see if needed. Patient confirmed that she wants conservative treatment with no CT imaging performed today.. 11/16 19:22 Order name: CBC with Diff; Complete Time: 20:04 rt 11/16 19:22 Order name: CMP; Complete Time: 20:51 rt 11/16 19: Order name: Acetaminophen; Complete Time: 20:51 rt Administered Medications: 19:51 Drug: Meclizine PO 50 mg Route: PO; kl 20:12 Follow up: Response: No adverse reaction; Marked relief of symptoms kl 19:51 Drug: Magnesium Sulfate IVPB 2 grams Route: IVPB; Infused Over: 2 hrs; Site: right kl antecubital; 19:51 Drug: NS 0.9% IV 1000 ml Route: IV; Rate: 1 bolus; Site: right antecubital; kl Disposition Summary: 11/16/22 20:53 Discharge Ordered Location: Home sp3 Condition: Stable sp3 Diagnosis - Sinusitis, vertigo sp3 Followup: sp3 - With: Private Physician - When: Upon discharge from the Emergency Department - Reason: Continuance of care Discharge Instructions: - Discharge Summary Sheet sp3 - Sinusitis, Adult sp3 - Vertigo sp3 Forms: - Medication Reconciliation Form sp3 - Thank You Letter sp3 - Antibiotic Education sp3 - Prescription Opioid Use sp3 Signatures: Dispatcher [employer] Lilibeth Slaughter RN RN kl Williams, Irene, RN RN iw Patel, Setul, MD MD sp3 Aime Hall MD MD rt
--- NOTE | 2022-11-16 20:54 | ER ---
Nurse's Notes [facility] Name: Michael Ovalle Age: 37 yrs Sex: Female : 1985 Arrival Date: 11/16/2022 Time: 18:04 Bed 8 Private MD: Diagnosis: Sinusitis, vertigo Presentation: 11/16 18:29 Chief complaint: Spouse and/or significant other states: has been having sinus symptoms iw , dizziness, pressure in head, ear pain, nausea , has been taking Sudafed and it helped for a while but it's not helping anymore, started over a year now , but past couple months has been consistent , today she almost had a wreck because of the dizziness. Coronavirus screen: At this time, the client does not indicate any symptoms associated with coronavirus-19. Ebola Screen: Patient negative for fever greater than or equal to 101.5 degrees Fahrenheit, and additional compatible Ebola Virus Disease symptoms Patient denies exposure to infectious person. Patient denies travel to an Ebola-affected area in the 21 days before illness onset. No symptoms or risks identified at this time. Initial Sepsis Screen: Does the patient meet any 2 criteria? No. Patient's initial sepsis screen is negative. Does the patient have a suspected source of infection? No. Patient's initial sepsis screen is negative. Risk Assessment: Do you want to hurt yourself or someone else? Patient reports no desire to harm self or others. Onset of symptoms was 2021. 18:29 Method Of Arrival: Ambulatory iw 18:29 Acuity: JUSTO 3 iw Triage Assessment: 18:44 Headache History: The patient has had previous headaches and this one is similar to bp previous episodes. General: Appears in no apparent distress. Behavior is cooperative, appropriate for age, anxious. Pain: Complains of pain in head Pain currently is 5 out of 10 on a pain scale. Pain began years ago. Also complains of DIZZINESS. EENT: Reports nasal congestion. Neuro: Reports dizziness. Cardiovascular: No deficits noted. Respiratory: No deficits noted. GI: No signs and/or symptoms were reported involving the gastrointestinal system. : No signs and/or symptoms were reported regarding the genitourinary system. Derm: No deficits noted. Musculoskeletal: No deficits noted. BALANCE RECESSER: 18:34 LMP 11/02/2022 iw Historical: - Allergies: 18:33 Bactrim; iw 18:33 Advil Migraine; iw - Home Meds: 18:33 Humalog U-100 Insulin 100 unit/mL Sub-Q cartridge once [Active]; iw - PMHx: 18:33 Diabetes mellitus; iw - Immunization history:: Adult Immunizations Flu vaccine is up to date. - Social history:: Smoking status: Patient denies any tobacco usage or history of. - Family history:: not pertinent. Screenin:[facility] ED Fall Risk Assessment (Adult) History of falling in the last 3 months, bp including since admission No falls in past 3 months (0 pts). Abuse screen: Denies threats or abuse. Denies injuries from another. Nutritional screening: No deficits noted. Tuberculosis screening: No symptoms or risk factors identified. Assessment: 18:45 General: SEE TRIAGE NOTE. bp 19:20 Reassessment: Patient and/or family updated on plan of care and expected duration. Pain vc1 level reassessed. Patient is alert, oriented x 3, equal unlabored respirations, skin warm/dry/pink. 20:16 Reassessment: Patient and/or family updated on plan of care and expected duration. Pain vc1 level reassessed. Provider at bedside. Vital Signs: 18:29 BP 114 / 76; Pulse 77; Resp 16; Temp 97.9; Pulse Ox 100% on R/A; Weight 61.23 kg; iw Height 5 ft. 5 in. ; Pain 6/10; 19:00 BP 117 / 70; Pulse 64; Resp 16; Pulse Ox 100% ; vc1 20:00 BP 121 / 72; Pulse 63; Resp 16; Pulse Ox 100% ; vc1 18:29 Body Mass Index 22.46 (61.23 kg, 165.1 cm) iw 18:29 Pain Scale: Adult ED Course: 18:08 Patient arrived in ED. kj1 18:14 Aime Hall MD is Attending Physician. rt 18:32 Triage completed. iw 18:33 Arm band placed on. iw 18:45 Patient has correct armband on for positive identification. Bed in low position. Call bp light in reach. Side rails up X2. 19:20 Cris Osborn, MARTA is Primary Nurse. vc1 19:35 Inserted saline lock: 20 gauge in right antecubital area, using aseptic technique. kl Blood collected. 19:35 Acetaminophen Sent. kl 19:35 CMP Sent. kl 19:35 CBC with Diff Sent. kl 20:04 Attending Physician role handed off by Aime Hall MD sp3 20:04 Andrea Lorenzo MD is Attending Physician. sp3 21:01 No provider procedures requiring assistance completed. IV discontinued, intact, vc1 bleeding controlled, No redness/swelling at site. Pressure dressing applied. Administered Medications: 19:51 Drug: Meclizine PO 50 mg Route: PO; kl 20:12 Follow up: Response: No adverse reaction; Marked relief of symptoms kl 19:51 Drug: Magnesium Sulfate IVPB 2 grams Route: IVPB; Infused Over: 2 hrs; Site: right kl antecubital; 19:51 Drug: NS 0.9% IV 1000 ml Route: IV; Rate: 1 bolus; Site: right antecubital; Medication: 18:45 VIS not applicable for this client. bp Outcome: 20:53 Discharge ordered by . sp3 21:01 Discharged to home ambulatory, with significant other. vc1 21:01 Condition: good 21:01 Discharge instructions given to patient, Instructed on discharge instructions, follow up and referral plans. Demonstrated understanding of instructions, follow-up care. 21:02 Patient left the ED. vc1 Signatures: Lilibeth Rodríguez RN RN kl Williams, Irene, RN RN iw Peltier, Brian, RN RN bp Jackson, Kandis kj1 Andrea Lorenzo MD MD sp3 Cris Osborn RN RN vc1 Aime Hall MD MD rt
[2022-11-16 21:29] VITALS: TEMP 97.9; O2SAT 100
[2022-11-16 21:32] VITALS: BP 121/72
== END 2022-11-16 21:02 | disposition home or self-care (01) ==
LOC: ER 18:04
DX: J32.9 Chronic sinusitis, unspecified (principal); E11.9 Type 2 diabetes mellitus without complications; Z79.4 Long term (current) use of insulin; Z88.1 Allergy status to other antibiotic agents; Z88.6 Allergy status to analgesic agent
CPT/HCPCS: 85025; 36415; 80053; J8597; J3475; J7030; G0480